=== PATIENT | female | born 1965 | race Caucasian/White ===

== ENCOUNTER → 2016-11-25 | Outpatient (CLI) | payer OTHER ==
--- NOTE | 2016-11-25 20:21 | PN ---
Amee is a 51-year-old female patient with known history of chronic hypersomnia and a component of insomnia. Further investigation showed the patient has a mild ARTURO and she was placed on an auto PAP treatment. Today the patient is coming in for a compliancy check. She is feeling great. Her sleep walking has improved significantly. Morning headache has resolved. Her weight is 202. Her compliancy data from APAP machine showed an average APAP use of 6.4 hours per night. AHI is down to one. Leak factor is 19 L a minute. P90 pressure is at 12. CPAP compliancy for the past 30 days is 27 out of 30. She is also using Ambien for sleep induction and maintenance. She has chronic back pain, gastroesophageal reflux, hypertension, hyperlipidemia, depression and irritable bowel disease. BP is 127/78, pulse 70, respirations 16, temperature is 97.9. Weight is 202, saturation 98% on room air. GENERAL APPEARANCE: Calm, comfortable. HEENT: No goiter, neck masses. LUNGS: Clear to auscultation. HEART: Sounds are regular rate and rhythm. Normal S1, S2. ABDOMEN: Soft, nontender. No organomegaly. EXTREMITIES: No edema. No cyanosis, or clubbing. IMPRESSIONS: 1. Obstructive sleep apnea mild apnea-hypopnea index 12.3. The patient is on good treatment with a APAP unit with excellent clinical response and compliance. 2. Chronic hypersomnia, improved. 3. Chronic insomnia on Ambien. 4. Fibromyalgia. 5. Chronic back pain. 6. Hyperlipidemia. 7. Hypertension. 8. Depression. 9. Irritable bowel syndrome. 10. Gastroesophageal reflux disease. PLAN: 1. Continue APAP treatment. 2. Weight loss. 3. Continue to Ambien 10 mg for sleep induction and maintenance. 4. Improve sleep hygiene measures. 5. ( ) fibromyalgia and the rest of the comorbidities. 6. See me back in a year's time in follow-up; earlier if needed.
== END | disposition home or self-care (01) ==
LOC: SLEEP 16:32
PROVIDERS: ATTEND Internal Medicine Critical Care Medicine
DX: G47.33 Obstructive sleep apnea (adult) (pediatric) (principal); G47.10 Hypersomnia, unspecified; G47.00 Insomnia, unspecified; M79.7 Fibromyalgia; G89.29 Other chronic pain; M54.9 Dorsalgia, unspecified; E78.5 Hyperlipidemia, unspecified; I10 Essential (primary) hypertension; F32.9 Major depressive disorder, single episode, unspecified; K58.9 Irritable bowel syndrome, unspecified; K21.9 Gastro-esophageal reflux disease without esophagitis

== ENCOUNTER → 2017-05-13 | Outpatient (CLI) | payer OTHER ==
--- NOTE | 2017-05-13 11:31 | XR ---
EXAMINATION TYPE: XR Hip Complete RT , 2 VIEWS DATE OF EXAM ORDERED: 05/13/2017 HISTORY: M25.551 pain in right hip. COMPARISON: None. FINDINGS: There is a calcified labral fragment lying adjacent to the superior acetabulum on the righ t. The joint is reasonably well-maintained. The femoral head is unremarkable. No acute osseous lesion is seen. IMPRESSION: 1. NO ACUTE OSSEOUS LESION. 2. MILD DEGENERATIVE CHANGE.
== END | disposition home or self-care (01) ==
LOC: RADXRMAIN 11:12
PROVIDERS: ATTEND Family Medicine
DX: M16.11 Unilateral primary osteoarthritis, right hip (principal)
CPT/HCPCS: 73502

== ENCOUNTER → 2017-05-25 | Outpatient (CLI) | payer OTHER ==
--- NOTE | 2017-05-26 16:05 | MR ---
MR right hip HISTORY: Right hip pain Correlation to plain films 05/13/2017 Multiplanar multisequence imaging obtained through the pelvis with small [id number] images through the right hip. Small ossific density seen on plain film the level of the acetabulum laterally in the right hip may r epresent an unfused apophysis or possibly a chronic labral tear. Articular cartilage signal is mainta ined. Bone marrow signal is normal. No sizable joint effusion. Fluid signal is present at the origin of the joint tendon of the hamstring musculature at the level o f the ischial tuberosity. There is some surrounding edema present. There may be a ganglion cyst forma tion. There is no adenopathy present. Small amount of fluid signal present at the insertion of the gluteal tendons right greater than left could represent trochanteric bursitis which is mild. IMPRESSION: Findings suggest tear at the origin of the hamstring musculature, findings may be chronic , correlate. Additional findings above.
== END | disposition home or self-care (01) ==
LOC: RADMRIMAIN 16:51
PROVIDERS: ATTEND Family Medicine
DX: M25.551 Pain in right hip (principal)

== ENCOUNTER → 2017-11-09 | Outpatient (CLI) | payer OTHER ==
--- NOTE | 2017-11-11 07:12 | MM ---
Reason for exam: screening (asymptomatic). Last mammogram was performed 1 year and 3 months ago. History: Family history of breast cancer in maternal aunt at age 60, breast cancer in maternal aunt at age 40, and breast cancer in maternal cousin at age 30. Benign US biopsy breast VAD RT of the right breast, August 13, 2015. Taking hormonal contraceptives for 10 years beginning at age 45. Taking other hormone. Physical Findings: A clinical breast exam by your physician is recommended on an annual basis and results should be correlated with mammographic findings. MG Screening Mammo w CAD Bilateral CC and MLO view(s) were taken. Prior study comparison: August 08, 2016, bilateral MG diagnostic mammo w CAD MICHELLE. August 08, 2016, right breast US breast RT. February 01, 2016, bilateral MG diagnostic mammo w CAD MICHELLE. The breast tissue is heterogeneously dense. This may lower the sensitivity of mammography. There are benign appearing oval, circumscribed, bilateral stable masses with biopsy marker in the right upper outer quadrant mass. No suspicious abnormality. No significant changes when compared with prior studies. ASSESSMENT: Benign, BI-RAD 2 RECOMMENDATION: Routine screening mammogram of both breasts in 1 year.
== END | disposition home or self-care (01) ==
LOC: RADMAMWWP 13:42
PROVIDERS: ATTEND Family Medicine
DX: Z12.31 Encounter for screening mammogram for malignant neoplasm of breast (principal)
CPT/HCPCS: 77067

== ENCOUNTER → 2017-12-01 | Outpatient (CLI) | payer OTHER ==
[2017-12-01 16:30] LABS: T4, Free (Free Thyroxine) 0.72 ng/dL (0.78-2.19)
== END | disposition home or self-care (01) ==
LOC: LABWHC1 15:23
PROVIDERS: ATTEND Psychiatry & Neurology Neurology
DX: R41.3 Other amnesia (principal)
CPT/HCPCS: 36415; 82607; 84439; 84443

== ENCOUNTER → 2017-12-11 | Outpatient (CLI) | payer OTHER | END | disposition home or self-care (01) | LOC: LABWHC1 10:23 | PROVIDERS: ATTEND Family Medicine | DX: R53.83 Other fatigue (principal) | CPT/HCPCS: 36415; 86340 ==

== ENCOUNTER → 2018-04-20 | Outpatient (CLI) | payer OTHER ==
--- NOTE | 2018-04-20 18:31 | XR ---
EXAMINATION TYPE: XR wrist limited RT DATE OF EXAM: 04/20/2018 COMPARISON: NONE HISTORY: Wrist pain TECHNIQUE: 2 views FINDINGS: There is a plate with screws fixing an old fracture of the distal radius. Radiocarpal joint is anatomic. I see no acute fracture nor dislocation. There is old ununited ulnar styloid process fr acture. IMPRESSION: No acute abnormality of the right wrist. 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
== END | disposition home or self-care (01) ==
LOC: RADXRMAIN 16:15
PROVIDERS: ATTEND Family Medicine
DX: M19.031 Primary osteoarthritis, right wrist (principal)

== ENCOUNTER 2018-05-16 12:07 | Emergency (ER) | payer OTHER ==
[2018-05-16] MEDS ORDERED: KETOROLAC 30 MG/ML 1 ML VIAL IM STA (12:37)
--- NOTE | 2018-05-16 12:40 | ED ---
Lower Extremity Injury HPI - General Chief Complaint: Extremity Injury, Lower Stated Complaint: rt hip pain Time Seen by Provider: 05/16/18 12:21 Source: patient Mode of arrival: ambulatory Limitations: no limitations - History of Present Illness Initial Comments: 53-year-old female patient presents to the emergency department today for evaluation of right hip pain. Patient states that around 3 or 4:00 in the morning she was rolling over in bed and got caught on her nightgown, states that she jerked her leg and it caused a popping in her right hip. Patient states that she has been having significant pain to the right lateral and anterior hip since. Patient states it is difficult to walk. Patient states it is difficult to lift the leg. She denies any radiation of the pain down the leg. Denies any numbness or tingling to the lower extremity. Denies any low back pain, loss of bowel or bladder control, or saddle anesthesia. Denies any previous injury to the hip. Patient denies any headache, neck pain, chest pain, shortness of breath, dizziness, weakness, abdominal pain, nausea, vomiting, or difficulties with bowel movements or urination. - Related Data Home Medications Medication Instructions Recorded Confirmed Dicyclomine [Bentyl] 20 mg PO QID PRN 02/14/15 12/23/16 FLUoxetine HCL [PROzac] 40 mg PO DAILY 02/14/15 12/23/16 Losartan [Cozaar] 50 mg PO DAILY 02/14/15 12/23/16 Medroxyprogesterone Acetate 150 mg IM Q90D 02/14/15 12/23/16 [Depo-Provera] Naproxen [Naprosyn] 500 mg PO Q12HR 02/14/15 12/23/16 Omeprazole [PriLOSEC] 20 mg PO AC-BID 02/14/15 12/23/16 Simvastatin [Zocor] 40 mg PO HS 02/14/15 12/23/16 metFORMIN HCL [Glucophage] 500 mg PO TID 02/14/15 12/23/16 Cyclobenzaprine [Flexeril] 10 mg PO TID PRN 10/04/16 12/23/16 Zolpidem Tartrate [Ambien] 10 mg PO HS PRN 10/04/16 12/23/16 Ferrous Sulfate [Iron (65 MG 325 mg PO DAILY 10/05/16 12/23/16 Elemental)] Previous Rx's Medication Instructions Recorded Aspirin EC [Ecotrin Low Dose] 81 mg PO DAILY #30 tablet. 10/06/16 Metoprolol Tartrate [Lopressor] 12.5 mg PO BID #60 tab 10/06/16 Allergies Allergy/AdvReac Type Severity Reaction Status Date / Time No Known Allergies Allergy Verified 05/16/18 12:13 Review of Systems ROS Statement: Those systems with pertinent positive or pertinent negative responses have been documented in the HPI. ROS Other: All systems not noted in ROS Statement are negative. Past Medical History Past Medical History: Asthma, Diabetes Mellitus, Fibromyalgia, GERD/Reflux, Hyperlipidemia, Hypertension, Osteoarthritis (OA), Sleep Apnea/CPAP/BIPAP Additional Past Medical History / Comment(s): IBS History of Any Multi-Drug Resistant Organisms: None Reported Past Surgical History: Section, Orthopedic Surgery Additional Past Surgical History / Comment(s): right wrist surg. x 4 Past Anesthesia/Blood Transfusion Reactions: No Reported Reaction Past Psychological History: Anxiety, Depression Smoking Status: Never smoker Past Alcohol Use History: None Reported Past Drug Use History: None Reported - Past Family History Mother Family Medical History: Cancer General Exam Limitations: no limitations General appearance: alert, in no apparent distress, other (Well-developed, well- nourished adult female patient in no acute distress. Vital signs upon presentation are temperature 98.3F, pulse 81, respirations 18, blood pressure 120/79, pulse ox 100% on room air.) Eye exam: Present: normal appearance, PERRL, EOMI. Absent: scleral icterus, conjunctival injection, periorbital swelling ENT exam: Present: normal exam, normal oropharynx, mucous membranes moist Respiratory exam: Present: normal lung sounds bilaterally. Absent: respiratory distress, wheezes, rales, rhonchi, stridor Cardiovascular Exam: Present: regular rate, normal rhythm, normal heart sounds. Absent: systolic murmur, diastolic murmur, rubs, gallop, clicks Extremities exam: Present: full ROM, tenderness (Right lateral hip tenderness), normal capillary refill, other (Patient has full range of motion to the right hip. Has no pain with internal or exteral rotation. No pain with flexion of the hip, but has increased pain with motion from flexion to extension. Skin to the right lower extremity is pink, warm, and dry. Cap refills less than 3 seconds. Pedal posttibial pulses are 2+ and equal bilaterally. No shortening or rotation noted. ). Absent: normal inspection, pedal edema, joint swelling, calf tenderness Back exam: Present: normal inspection. Absent: vertebral tenderness Neurological exam: Present: alert, oriented X3, CN II-XII intact Psychiatric exam: Present: normal affect, normal mood Skin exam: Present: warm, dry, intact, normal color. Absent: rash Course Vital Signs 05/16/18 05/16/18 12:13 13:45 Temperature 98.3 F 98 F Pulse Rate 81 77 Respiratory 18 16 Rate Blood Pressure 120/79 117/77 O2 Sat by Pulse 100 99 Oximetry Medical Decision Making - Medical Decision Making 53-year-old male patient presented to the emergency department today for evaluation of right hip pain after feeling a pop while rolling over in bed last night. Physical examination is unremarkable. She has full range of motion to the right hip. Neurovascular status is intact. X-ray of the hip and pelvis was obtained and showed no acute fractures or dislocations. Did discuss findings and results with the patient. We did discuss that her injury is most likely muscular or tendinous in origin. She is instructed take anti- inflammatory pain medications as directed. She is instructed to apply ice and then start to apply heat tomorrow. She is instructed to follow-up outpatient in 1-2 days if her symptoms are not improved. Return parameters discussed in detail. She verbalizes understanding and agrees with this plan. - Radiology Data Radiology results: report reviewed, image reviewed 3 views of the right hip and went to of the pelvis is obtained. There are mild degenerative changes in both hips. There is a calcified able fragment on the right. No fracture or dislocation is seen. There is mild and diffuse opacity seen arising from the anterior pubic ramus on the right. Impression by Dr. Lay shows no acute osseous lesion. Mild degenerative change. Disposition Clinical Impression: Strain of right hip Disposition: HOME SELF-CARE Condition: Good Instructions: Hip Pain (ED) Additional Instructions: Apply ice for the first 24 hours and then switch to warm moist heat. Continue taking home anti-inflammatory medications as needed. Follow-up with orthopedics if her symptoms do not improve over the next 1-2 days. Return here immediately for any new, worsening, or concerning symptoms. Is patient prescribed a controlled substance at d/c from ED?: No Referrals: Heather Velez MD [Primary Care Provider] - 1-2 days Orlin Parekh MD [Medical Doctor] - 1-2 days Time of Disposition: 13:41
--- NOTE | 2018-05-16 13:12 | XR ---
EXAMINATION TYPE: XR Hip RT and AP Pelvis , 3 VIEWS DATE OF EXAM ORDERED: 05/16/2018 HISTORY: Pain. COMPARISON: None. FINDINGS: There are mild degenerative changes in both hips. There is a calcified labral fragment on the right. No fracture or dislocation is seen. There is a mild enthesopathy seen arising from the inf erior pubic ramus on the right. IMPRESSION: 1. NO ACUTE OSSEOUS LESION. 2. MILD DEGENERATIVE CHANGE.
[2018-05-16] MEDS ORDERED: ACET/COD 300 MG/30 MG STARTER PACK 6 TAB BTL PO STA (13:41)
[2018-05-16 13:46] VITALS: BP 117/77; PULSE 77; RESP 16; TEMP 98
== END 2018-05-16 13:49 | disposition home or self-care (01) ==
LOC: EC 12:07
DX: E11.9 Type 2 diabetes mellitus without complications (principal); M79.7 Fibromyalgia; K21.9 Gastro-esophageal reflux disease without esophagitis; E78.5 Hyperlipidemia, unspecified; I10 Essential (primary) hypertension; M19.90 Unspecified osteoarthritis, unspecified site; F41.9 Anxiety disorder, unspecified; F32.9 Major depressive disorder, single episode, unspecified; G47.30 Sleep apnea, unspecified; Z99.89 Dependence on other enabling machines and devices; Z79.3 Long term (current) use of hormonal contraceptives; Z79.1 Long term (current) use of non-steroidal anti-inflammatories (NSAID); Z79.84 Long term (current) use of oral hypoglycemic drugs; Z79.899 Other long term (current) drug therapy; S76.011A Strain of muscle, fascia and tendon of right hip, initial encounter; X50.1XXA Overexertion from prolonged static or awkward postures, initial encounter
CPT/HCPCS: 73502; 99283; 96372; J1885

== ENCOUNTER 2018-05-23 09:58 | Emergency (ER) | payer OTHER ==
[2018-05-23 10:08] VITALS: RESP 18
--- NOTE | 2018-05-23 11:02 | XR ---
EXAMINATION TYPE: XR foot complete RT , 3 VIEWS DATE OF EXAM ORDERED: 05/23/2018 HISTORY: Pain. COMPARISON: None. FINDINGS: There are mild degenerative changes in the first MTP joint. No fracture or dislocation is seen. There is a plantar calcaneal spur. IMPRESSION: 1. NO ACUTE OSSEOUS LESION. 2. DEGENERATIVE CHANGE, RIGHT FIRST MTP JOINT. 3. PLANTAR CALCANEAL SPUR.
--- NOTE | 2018-05-23 11:03 | XR ---
EXAMINATION TYPE: XR ankle complete RT , 3 VIEWS DATE OF EXAM ORDERED: 05/23/2018 HISTORY: Pain. COMPARISON: None. FINDINGS: No fracture, dislocation or ankle joint effusion is seen. Note is made of a tiny plantar calcaneal spur. IMPRESSION: NO ACUTE OSSEOUS LESION.
--- NOTE | 2018-05-23 11:03 | ED ---
General Adult HPI - General Chief complaint: Extremity Injury, Lower Stated complaint: rt foot injury Time Seen by Provider: 05/23/18 10:30 Source: patient, RN notes reviewed Mode of arrival: ambulatory Limitations: no limitations - History of Present Illness Initial comments: Patient is a 53-year-old female presenting to the emergency room today with a chief complaint of injury to the right foot and ankle area that occurred 4 days ago. Patient does admit that she twisted it when she was walking. Patient does admit that she has pain with ambulation. Patient denies any other injury or complaint. Patient denies any recent fever, chills, shortness of breath, chest pain, back pain, abdominal pain, nausea or vomiting, headaches or visual changes, or any other complaints. - Related Data Home Medications Medication Instructions Recorded Confirmed Dicyclomine [Bentyl] 20 mg PO QID PRN 02/14/15 12/23/16 FLUoxetine HCL [PROzac] 40 mg PO DAILY 02/14/15 12/23/16 Losartan [Cozaar] 50 mg PO DAILY 02/14/15 12/23/16 Medroxyprogesterone Acetate 150 mg IM Q90D 02/14/15 12/23/16 [Depo-Provera] Naproxen [Naprosyn] 500 mg PO Q12HR 02/14/15 12/23/16 Omeprazole [PriLOSEC] 20 mg PO AC-BID 02/14/15 12/23/16 Simvastatin [Zocor] 40 mg PO HS 02/14/15 12/23/16 metFORMIN HCL [Glucophage] 500 mg PO TID 02/14/15 12/23/16 Cyclobenzaprine [Flexeril] 10 mg PO TID PRN 10/04/16 12/23/16 Zolpidem Tartrate [Ambien] 10 mg PO HS PRN 10/04/16 12/23/16 Ferrous Sulfate [Iron (65 MG 325 mg PO DAILY 10/05/16 12/23/16 Elemental)] Previous Rx's Medication Instructions Recorded Aspirin EC [Ecotrin Low Dose] 81 mg PO DAILY #30 tablet. 10/06/16 Metoprolol Tartrate [Lopressor] 12.5 mg PO BID #60 tab 10/06/16 Allergies Allergy/AdvReac Type Severity Reaction Status Date / Time No Known Allergies Allergy Verified 05/23/18 10:08 Review of Systems ROS Statement: Those systems with pertinent positive or pertinent negative responses have been documented in the HPI. ROS Other: All systems not noted in ROS Statement are negative. Past Medical History Past Medical History: Asthma, Diabetes Mellitus, Fibromyalgia, GERD/Reflux, Hyperlipidemia, Hypertension, Osteoarthritis (OA), Sleep Apnea/CPAP/BIPAP Additional Past Medical History / Comment(s): IBS History of Any Multi-Drug Resistant Organisms: None Reported Past Surgical History: Section, Orthopedic Surgery Additional Past Surgical History / Comment(s): right wrist surg. x 4 Past Anesthesia/Blood Transfusion Reactions: No Reported Reaction Past Psychological History: Anxiety, Depression Smoking Status: Never smoker Past Alcohol Use History: None Reported Past Drug Use History: None Reported - Past Family History Mother Family Medical History: Cancer General Exam - General Exam Comments Initial Comments: General: The patient is awake and alert, in no distress, and does not appear acutely ill. Neck: The neck is supple, there is no tenderness or JVD. Musculoskeletal: Normal appearance of her foot no obvious deformity. No tenderness on palpation to the right foot, ankle, knee. Sensations are intact. Pulses 2+. Neurological: A&O x 3. CN II-XII intact, There are no obvious motor or sensory deficits. Coordination appears grossly intact. Speech is normal. Skin: Skin is warm and dry and no rashes or lesions are noted. Psychiatric: Normal mood and affect. Limitations: no limitations Course Vital Signs 05/23/18 10:05 Temperature 98.2 F Pulse Rate 67 Respiratory 18 Rate Blood Pressure 133/87 O2 Sat by Pulse 98 Oximetry Medical Decision Making - Medical Decision Making Patient's x-rays negative for any acute abnormality. Results were discussed with patient. Patient will be discharged home advised follow-up in 7-10 days if symptoms persist for repeat x-rays. Disposition Clinical Impression: Foot sprain Disposition: HOME SELF-CARE Condition: Good Instructions: Foot Sprain (ED) Additional Instructions: Please follow-up in 7-10 days for repeat x-rays if symptoms persist as discussed. Please return to emergency room if the symptoms increase or worsen or for any other concerns. Is patient prescribed a controlled substance at d/c from ED?: No Referrals: Heather Velez MD [Primary Care Provider] - 1-2 days Time of Disposition: 11:31
[2018-05-23 12:02] VITALS: BP 137/79; PULSE 68; TEMP 98.7
== END 2018-05-23 11:56 | disposition home or self-care (01) ==
LOC: EC 09:58
DX: S93.601A Unspecified sprain of right foot, initial encounter (principal); E11.9 Type 2 diabetes mellitus without complications; K21.9 Gastro-esophageal reflux disease without esophagitis; E78.5 Hyperlipidemia, unspecified; I10 Essential (primary) hypertension; M19.90 Unspecified osteoarthritis, unspecified site; F32.9 Major depressive disorder, single episode, unspecified; G47.30 Sleep apnea, unspecified; Z99.89 Dependence on other enabling machines and devices; Z98.890 Other specified postprocedural states; Z79.1 Long term (current) use of non-steroidal anti-inflammatories (NSAID); Z79.84 Long term (current) use of oral hypoglycemic drugs; Z79.52 Long term (current) use of systemic steroids; Z79.899 Other long term (current) drug therapy; X50.1XXA Overexertion from prolonged static or awkward postures, initial encounter; Y93.01 Activity, walking, marching and hiking
CPT/HCPCS: 99283

== ENCOUNTER → 2018-11-25 | Outpatient (CLI) | payer OTHER ==
--- NOTE | 2018-11-29 08:37 | MM ---
Reason for exam: screening (asymptomatic). Last mammogram was performed 1 year and 1 month ago. History: Family history of breast cancer in maternal aunt at age 60, breast cancer in maternal aunt at age 40, and breast cancer in maternal cousin at age 30. Benign US biopsy breast VAD RT of the right breast, August 13, 2015. Taking hormonal contraceptives for 10 years beginning at age 45. Taking other hormone. Physical Findings: A clinical breast exam by your physician is recommended on an annual basis and results should be correlated with mammographic findings. MG Screening Mammo w CAD Bilateral CC and MLO view(s) were taken. Prior study comparison: November 09, 2017, bilateral MG screening mammo w CAD. August 08, 2016, bilateral MG diagnostic mammo w CAD MICHELLE. The breast tissue is heterogeneously dense. This may lower the sensitivity of mammography. Previous mammotome biopsy in the right breast. There is chronic nodularity bilaterally. There is no discrete abnormality. ASSESSMENT: Benign, BI-RAD 2 RECOMMENDATION: Routine screening mammogram of both breasts in 1 year.
== END | disposition home or self-care (01) ==
LOC: RADMAMWWP 07:39
PROVIDERS: ATTEND Family Medicine
DX: Z12.31 Encounter for screening mammogram for malignant neoplasm of breast (principal)
CPT/HCPCS: 77067

== ENCOUNTER → 2019-01-21 | Outpatient (CLI) | payer OTHER ==
[2019-01-21 08:35] LABS: Basophils # (A) 0.1 k/uL (0-0.2); Basophils % (A) 1 %; Eosinophils # (A) 0.2 k/uL (0-0.7); Eosinophils % (A) 4 %; HCT 41.6 % (34.0-46.0); HGB 14.4 gm/dL (11.4-16.0); Lymphocytes # (A) 1.9 k/uL (1.0-4.8); Lymphocytes % (A) 30 %; MCH 31.8 pg (25.0-35.0); MCHC 34.6 g/dL (31.0-37.0); MCV 91.8 fL (80.0-100.0); Mean Platelet Volume 8.8; Monocytes # (A) 0.4 k/uL (0-1.0); Monocytes % (A) 6 %; Neutrophils # (A) 3.7 k/uL (1.3-7.7); Neutrophils % (A) 58 %; Platelet Count 304 k/uL (150-450); RBC 4.53 m/uL (3.80-5.40); WBC 6.3 k/uL (3.8-10.6)
[2019-01-21 16:01] LABS: Albumin 4.1 g/dL (3.80-4.90); Albumin/Globulin Ratio 2.93 (1.60-3.17); Anion Gap 11.6 mmol/L (4.00-12.00); Calcium 9.2 mg/dL (8.7-10.3); Carbon Dioxide 24.4 mmol/L (21.6-31.8); Globulin 1.4 g/dL (1.6-3.3); LDL Cholesterol,Calculated 85.8 mg/dL (0.0-131.0); Potassium 4.1 mmol/L (3.5-5.5); Total Bilirubin 0.5 mg/dL (0.2-1.2); Total Protein 5.5 g/dL (6.2-8.2); VLDL Calculation 34.2 mg/dL (5.00-40.00)
[2019-01-21 18:19] LABS: Hemoglobin A1C 9.1 % (4.0-6.0)
== END ==
LOC: LABWHC1 07:55
PROVIDERS: ATTEND Family Medicine
DX: D64.9 Anemia, unspecified (principal); E11.9 Type 2 diabetes mellitus without complications; E78.5 Hyperlipidemia, unspecified; I10 Essential (primary) hypertension
CPT/HCPCS: 36415; 80053; 80061; 83036; 84443; 85025

== ENCOUNTER → 2019-11-28 | Outpatient (CLI) | payer OTHER ==
--- NOTE | 2019-11-28 10:50 | MM ---
Reason for exam: screening (asymptomatic). Last mammogram was performed 1 year ago. History: Family history of breast cancer in maternal aunt at age 60, breast cancer in maternal aunt at age 40, and breast cancer in maternal cousin at age 30. Benign US biopsy breast VAD RT of the right breast, August 13, 2015. Taking hormonal contraceptives for 10 years beginning at age 45. Taking other hormone. Physical Findings: A clinical breast exam by your physician is recommended on an annual basis and results should be correlated with mammographic findings. MG Screening Mammo w CAD Bilateral CC, MLO, and XCCL view(s) were taken. Prior study comparison: November 25, 2018, bilateral MG screening mammo w CAD. November 09, 2017, bilateral MG screening mammo w CAD. The breast tissue is heterogeneously dense. This may lower the sensitivity of mammography. Benign appearing calcifications in the right breast. Stable bilateral upper outer quadrant focal asymmetries No suspicious abnormality. Right biopsy marker noted. ASSESSMENT: Benign, BI-RAD 2 RECOMMENDATION: Routine screening mammogram of both breasts in 1 year.
== END | disposition home or self-care (01) ==
LOC: RADMAMWWP 07:43
PROVIDERS: ATTEND Family Medicine
DX: Z12.31 Encounter for screening mammogram for malignant neoplasm of breast (principal)
CPT/HCPCS: 77067

== ENCOUNTER → 2020-08-01 | Outpatient (CLI) | payer BC ==
--- NOTE | 2020-08-01 15:25 | XR ---
EXAMINATION TYPE: XR wrist complete RT DATE OF EXAM: 08/01/2020 CLINICAL HISTORY: pain TECHNIQUE: Frontal, lateral and oblique images of the right wrist are obtained. COMPARISON: 04/20/2018 FINDINGS: Fixation plate and screws are noted to traverse the distal radius as was seen previously. Fixation pl ate however demonstrates a lucency at its lateral component and this may reflect plate fracture. Ther e is also greater angulation dorsally relative to the prior study. There is deformity about the wrist . No acute fracture identified with certainty at this time. IMPRESSION: Plate fixation distal radius with plate fracture suggested and increased right angulation. ICD 10 NO FRACTURE, INITIAL EVALUATION
== END | disposition home or self-care (01) ==
LOC: RADXRMAIN 15:03
PROVIDERS: ATTEND Family Medicine
DX: S52.591A Other fractures of lower end of right radius, initial encounter for closed fracture (principal); Z96.7 Presence of other bone and tendon implants

== ENCOUNTER → 2020-12-27 | Outpatient (CLI) | payer BC ==
--- NOTE | 2020-12-28 14:48 | MM ---
Reason for exam: screening (asymptomatic). Last mammogram was performed 1 year and 1 month ago. History: Family history of breast cancer in maternal aunt at age 60, breast cancer in maternal aunt at age 40, and breast cancer in maternal cousin at age 30. Benign US biopsy breast VAD RT of the right breast, August 13, 2015. Taking hormonal contraceptives for 10 years beginning at age 45. Taking other hormone. Physical Findings: A clinical breast exam by your physician is recommended on an annual basis and results should be correlated with mammographic findings. MG Screening Mammo w CAD Bilateral CC and MLO view(s) were taken. Prior study comparison: November 28, 2019, bilateral MG screening mammo w CAD. November 25, 2018, bilateral MG screening mammo w CAD. There are scattered fibroglandular densities. There are benign appearing round calcifications bilaterally. Previous mammotome biopsy in the right breast. There is chronic nodularity bilaterally. There is no discrete abnormality. ASSESSMENT: Benign, BI-RAD 2 RECOMMENDATION: Routine screening mammogram of both breasts in 1 year.
== END | disposition home or self-care (01) ==
LOC: RADMAMWWP 13:42
PROVIDERS: ATTEND Family Medicine
DX: Z12.31 Encounter for screening mammogram for malignant neoplasm of breast (principal)
CPT/HCPCS: 77067

== ENCOUNTER → 2021-08-13 | Outpatient (CLI) | payer BC ==
--- NOTE | 2021-08-14 07:55 | CT ---
EXAMINATION TYPE: CT sinus wo con DATE OF EXAM: 08/13/2021 COMPARISON: None HISTORY: memory loss, visual changes, ringing in ears CT DLP: 385.[address] of the paranasal sinuses was performed in the axial and coronal planes. Bone and soft tissue settings are submitted. The paranasal sinuses demonstrate normal aeration and development. The paranasal sinuses are free of mucosal thickening or air fluid level. The osteal meatal units are patent bilaterally. The nasal septum is midline. No bony destructive changes are seen within the field of view. IMPRESSION: Normal unenhanced CT of the paranasal sinuses.
== END | disposition home or self-care (01) ==
LOC: RADCTMAIN 16:32
PROVIDERS: ATTEND Otolaryngology
DX: R41.3 Other amnesia (principal); H53.8 Other visual disturbances; H93.13 Tinnitus, bilateral
CPT/HCPCS: 70486

== ENCOUNTER → 2022-01-27 | Outpatient (CLI) | payer BC ==
--- NOTE | 2022-01-28 02:04 | MR ---
EXAMINATION TYPE: MR lumbar spine wo con DATE OF EXAM: 01/27/2022 COMPARISON: None HISTORY: Chronic LBP, BLE radiculopathy. Multiplanar multiecho imaging of the lumbar spine without contrast. The vertebrae have fairly normal alignment. There is a minimal anterior subluxation of L4 in relation L5. This spaces are well maintained. No compression fracture. The neural foramina are fairly well ma intained. Facet joints are intact. There is some minimal lateral recess stenosis at L4-5 due to facet arthropathy. No compression fracture. I see no bony destructive process. There is no lumbar paraspinal mass. The sacroiliac joints appear intact. IMPRESSION: There is a mild degenerative first-degree L4-5 spondylolisthesis. Minimal L4-5 lateral recess stenosi s. No fracture.
== END | disposition home or self-care (01) ==
LOC: RADMRIMAIN 18:33
PROVIDERS: ATTEND Orthopaedic Surgery
DX: M43.16 Spondylolisthesis, lumbar region (principal)
CPT/HCPCS: 72148

== ENCOUNTER → 2022-03-04 | Outpatient (CLI) | payer BC ==
--- NOTE | 2022-03-04 19:00 | US ---
EXAMINATION TYPE: US kidneys/renal and bladder DATE OF EXAM: 03/04/2022 COMPARISON: NONE CLINICAL HISTORY: 56-year-old female R10.9 Abdominal pain. TECHNIQUE: Multiple sonographic images of the kidneys and bladder are obtained. FINDINGS: EXAM MEASUREMENTS: Right Kidney: 10.7 x 4.6 x 5.3 cm Left Kidney: 11.1 x 4.3 x 4.6 cm Right Kidney: No hydronephrosis or masses seen Left Kidney: No hydronephrosis or masses seen Bladder: Limited, under distended. Bilateral Jets seen: No IMPRESSION: 1. No hydronephrosis. 2. Underdistention of the bladder limits its evaluation.
== END | disposition home or self-care (01) ==
LOC: RADUSWWP 11:22
PROVIDERS: ATTEND Family Medicine
DX: N32.89 Other specified disorders of bladder (principal)
CPT/HCPCS: 76770

== ENCOUNTER → 2022-03-20 | Outpatient (CLI) | payer BC ==
[2022-03-20 12:59] LABS: African American GFR (CKD) 69 (>60 ml/min/1.73 sqM); Anion Gap 9 mmol/L; Blood Urea Nitrogen 9 mg/dL (7-17); Calcium 9.4 mg/dL (8.4-10.2); Carbon Dioxide 28 mmol/L (22-30); Chloride 102 mmol/L (98-107); Glucose 96 mg/dL (74-99); Non-African American GFR(CKD) 59 (>60 ml/min/1.73 sqM); Sodium 139 mmol/L (137-145)
[2022-03-20 13:58] LABS: Basophils # (A) 0.1 k/uL (0-0.2); Basophils % (A) 1 %; Eosinophils # (A) 0.1 k/uL (0-0.7); Eosinophils % (A) 2 %; HCT 43.7 % (34.0-46.0); HGB 13.9 gm/dL (11.4-16.0); Lymphocytes # (A) 2.1 k/uL (1.0-4.8); Lymphocytes % (A) 29 %; MCHC 31.9 g/dL (31.0-37.0); MCV 97.2 fL (80.0-100.0); Mean Platelet Volume 9.9; Monocytes # (A) 0.5 k/uL (0-1.0); Monocytes % (A) 7 %; Neutrophils # (A) 4.3 k/uL (1.3-7.7); Neutrophils % (A) 59 %; Platelet Count 224 k/uL (150-450); RDW 13.6 % (11.5-15.5); WBC 7.2 k/uL (3.8-10.6)
== END | disposition home or self-care (01) ==
LOC: LABWHC1 11:51
PROVIDERS: ATTEND Family Medicine
DX: N28.9 Disorder of kidney and ureter, unspecified (principal)
CPT/HCPCS: 36415; 80048; 85025

== ENCOUNTER → 2022-04-24 | Outpatient (CLI) | payer BC ==
--- NOTE | 2022-04-24 15:23 | MR ---
EXAMINATION TYPE: MR brain and iac wo/w con DATE OF EXAM: 04/24/2022 COMPARISON: None HISTORY: Left side hearing loss and ringing TECHNIQUE: Multiplanar, multisequence images of the brain and brainstem is performed without and with IV contras t, utilizing 8 mL intravenous Gadavist . Small [id number] and high resolution images obtained thro [facility] the internal auditory canals FINDINGS: Diffusion weighted images demonstrate no evidence of a recent infarct or other diffusion ab normality. There is no extra-axial fluid collection or significant white matter signal abnormality, couple of small white matter right frontal hyperintensities on inversion recovery T2-weighted sequenc es are questioned clinical significance. The ventricular system and cisternal spaces are normal in s ize and appearance. The brain volume is age appropriate. Internal auditory canal show no abnormal soft tissue, there is no abnormal enhancement or cerebellopo ntine angle mass Midline structures demonstrate normal morphology. The craniocervical junction appears within normal limits. Post contrast images demonstrate no abnormal enhancement. The dural venous sinuses appear pa tent. The visualized sinuses are remarkable for inflammatory change in ethmoid air cells and the glob es are intact. IMPRESSION: Mild sinus disease. No evident acoustic neuroma.
== END | disposition home or self-care (01) ==
LOC: RADMRIMAIN 08:02
PROVIDERS: ATTEND Otolaryngology
DX: H93.12 Tinnitus, left ear (principal)
CPT/HCPCS: 70553; A9585

== ENCOUNTER → 2022-04-24 | Outpatient (CLI) | payer BC ==
--- NOTE | 2022-04-25 18:26 | MM ---
Reason for Exam: Screening (asymptomatic). Last mammogram was performed 1 year(s) and 4 month(s) ago. Patient History: Menarche at age 13. First Full-Term at age 26. Currently using Hormonal Contraceptives, beginning at age 45 for 10 years. 08/13/2015, Benign Core Biopsy on the right side. Maternal cousin had breast cancer, age 30. Maternal aunt had breast cancer, age 60. Maternal aunt had breast cancer, age 40. Risk Values: Leonarda 5 year model risk: 1.4%. NCI Lifetime model risk: 9.5%. Prior Study Comparison: 11/25/2018 Bilateral Screening Mammogram, [facility]. 11/28/2019 Bilateral Screening Mammogram, [facility]. 12/27/2020 Bilateral Screening Mammogram, [facility]. Tissue Density: There are scattered fibroglandular densities. Findings: Analyzed By CAD. Chronic nodularity on both sides. On the right, containing a microclip from prior biopsy. No significant change from prior exams. Overall Assessment: Benign, BI-RAD 2 Management: Screening Mammogram of both breasts in 1 year. 1. Patient should continue monthly self breast exams. 2. A clinical breast exam by your physician is recommended on an annual basis. 3. This exam should not preclude additional follow-up of suspicious palpable abnormalities. Electronically signed and approved by: Terrance Do M.D. Radiologist
== END | disposition home or self-care (01) ==
LOC: RADMAMWWP 16:05
PROVIDERS: ATTEND Family Medicine
DX: Z12.31 Encounter for screening mammogram for malignant neoplasm of breast (principal); Z80.3 Family history of malignant neoplasm of breast
CPT/HCPCS: 77067

== ENCOUNTER 2022-05-27 08:52 | Inpatient (IN) | payer BC ==
[2022-05-27 09:37] LABS: Basophils # (A) 0.1 k/uL (0-0.2); Basophils % (A) 1 %; Eosinophils # (A) 0.2 k/uL (0-0.7); Eosinophils % (A) 1 %; HCT 43.6 % (34.0-46.0); HGB 13.5 gm/dL (11.4-16.0); Hypochromasia Slight; Lymphocytes # (A) 2.8 k/uL (1.0-4.8); Lymphocytes % (A) 20 %; MCHC 31.1 g/dL (31.0-37.0); MCV 99.9 fL (80.0-100.0); Monocytes # (A) 0.8 k/uL (0-1.0); Monocytes % (A) 6 %; Neutrophils # (A) 9.7 k/uL (1.3-7.7); Neutrophils % (A) 71 %; Platelet Count 342 k/uL (150-450); RBC 4.36 m/uL (3.80-5.40); WBC 13.6 k/uL (3.8-10.6)
[2022-05-27] MEDS ORDERED: SODIUM CHLORIDE 0.9% 2,000 ML IV ONE (09:39)
[2022-05-27] MEDS ORDERED: ONDANSETRON 4 MG/2 ML VIAL IVP STA (09:40)
[2022-05-27 09:50] LABS: Albumin 4.2 g/dL (3.5-5.0); Calcium 9.5 mg/dL (8.4-10.2); Potassium 5.1 mmol/L (3.5-5.1); Total Bilirubin 0.6 mg/dL (0.2-1.3); Total Protein 6.8 g/dL (6.3-8.2)
--- NOTE | 2022-05-27 10:15 | XR ---
EXAMINATION TYPE: XR KUB DATE OF EXAM: 05/27/2022 Comparison: None Clinical History: 57 year-old female abdominal pain Findings: Lung bases are clear. No evidence for free intraperitoneal air. No dilated small bowel or differential air-fluid levels. Th ere is mild to moderate stool burden. Pelvic phlebolith are noted. No definite suspicious calcificati on otherwise seen. Impression: No evidence for free air or bowel obstruction. Mild to moderate stool burden.
[2022-05-27] MEDS ORDERED: DEXTROSE 50% SYRINGE 50 ML IVP STA (10:22)
[2022-05-27] MEDS ORDERED: NALOXONE 0.4 MG/ML 1 ML VIAL IV PRN (11:19)
--- NOTE | 2022-05-27 11:19 | ED ---
General Adult HPI - General Chief complaint: Nausea/Vomiting/Diarrhea Stated complaint: vomiting, not able to urinate, no bowel movement Time Seen by Provider: 05/27/22 09:25 Source: patient Mode of arrival: ambulatory Limitations: no limitations - History of Present Illness Initial comments: 57-year-old female presents the emergency department with nausea, vomiting and inability to urinate. States that she hasn't been able to eat or drink anything in a couple of days. She has terrible nausea to where she can't even hold down water. She denies any abdominal pain. No sick contacts with similar symptoms. No fevers. Denies chest pain or shortness of breath. She reports that she has not urinated in 24 hours. Daughter got wind of her symptoms immediately or come into the emergency department. Denies history of any kidney issues. No back or flank pain. No issues with her bowel movements. Denies diarrhea. She did have a urinary tract infection 1 month ago however not on any antibiotics. No other alleviating, precipitating or modifying factors - Related Data Home Medications Medication Instructions Recorded Confirmed Dicyclomine [Bentyl] 20 mg PO TID 02/14/15 05/27/22 Simvastatin [Zocor] 40 mg PO HS 02/14/15 05/27/22 metFORMIN HCL [Glucophage] 1,000 mg PO BID 02/14/15 05/27/22 Linagliptin [Tradjenta] 5 mg PO HS 05/30/20 05/27/22 Telmisartan [Micardis] 40 mg PO DAILY 05/30/20 05/27/22 ARIPiprazole [Abilify] 4 mg PO DAILY 05/27/22 05/27/22 Azelastine HCl [Astepro] 1 spray NASAL BID 05/27/22 05/27/22 Cyclobenzaprine [Flexeril] 5 mg PO TID 05/27/22 05/27/22 DULoxetine HCL [Cymbalta] 60 mg PO DAILY 05/27/22 05/27/22 Ergocalciferol [Vitamin D2 (1250 1,250 mcg PO Q14D 05/27/22 05/27/22 Mcg = 48741 Iu)] Ferrous Sulfate [Feosol] 325 mg PO DAILY 05/27/22 05/27/22 Fexofenadine HCl 180 mg PO HS 05/27/22 05/27/22 Fluticasone Nasal [place] [Flonase 2 spray EA NOSTRIL BID 05/27/22 05/27/22 Nasal [place]ize] Folic Acid 0.8 mg PO BID 05/27/22 05/27/22 Meloxicam [Mobic] 15 mg PO DAILY 05/27/22 05/27/22 Metoprolol Tartrate [Lopressor] 25 mg PO DAILY 05/27/22 05/27/22 Montelukast [Singulair] 10 mg PO HS 05/27/22 05/27/22 Naltrexone 3mg 3 mg PO HS 05/27/22 05/27/22 Omeprazole 40 mg PO BID 05/27/22 05/27/22 Pioglitazone [Actos] 30 mg PO DAILY 05/27/22 05/27/22 Propylene Glycol [Systane Complete] 1 drop BOTH EYES DAILY 05/27/22 05/27/22 Refresh Optical Gel 1 applic OPHTHALMIC HS 05/27/22 05/27/22 Thiamine [Vitamin B-1] 100 mg PO HS 05/27/22 05/27/22 Zolpidem [Ambien] 10 mg PO HS 05/27/22 05/27/22 Previous Rx's Medication Instructions Recorded Aspirin EC [Ecotrin Low Dose] 81 mg PO DAILY #30 tablet. 10/06/16 Allergies Allergy/AdvReac Type Severity Reaction Status Date / Time wheat Allergy Unknown Verified 05/27/22 11:46 Review of Systems ROS Statement: Those systems with pertinent positive or pertinent negative responses have been documented in the HPI. ROS Other: All systems not noted in ROS Statement are negative. Past Medical History Past Medical History: Asthma, Diabetes Mellitus, Fibromyalgia, GERD/Reflux, Hyperlipidemia, Hypertension, Osteoarthritis (OA), Sleep Apnea/CPAP/BIPAP Additional Past Medical History / Comment(s): IBS History of Any Multi-Drug Resistant Organisms: None Reported Past Surgical History: Section, Orthopedic Surgery Additional Past Surgical History / Comment(s): right wrist surg. x 4, eye surgery Past Anesthesia/Blood Transfusion Reactions: No Reported Reaction Past Psychological History: Anxiety, Depression Smoking Status: Never smoker Past Alcohol Use History: None Reported Past Drug Use History: None Reported - Past Family History Mother Family Medical History: Cancer Brother(s) Family Medical History: Myocardial Infarction (CO) Additional Family Medical History / Comment(s): three brothers had CO, CABG General Exam Limitations: no limitations General appearance: alert, in no apparent distress Head exam: Present: atraumatic, normocephalic, normal inspection Eye exam: Present: normal appearance, PERRL, EOMI. Absent: scleral icterus, conjunctival injection, periorbital swelling ENT exam: Present: normal exam, mucous membranes moist Neck exam: Present: normal inspection. Absent: tenderness, meningismus, lymphadenopathy Respiratory exam: Present: normal lung sounds bilaterally. Absent: respiratory distress, wheezes, rales, rhonchi, stridor Cardiovascular Exam: Present: normal rhythm, tachycardia, normal heart sounds. Absent: systolic murmur, diastolic murmur, rubs, gallop, clicks GI/Abdominal exam: Present: soft, normal bowel sounds. Absent: distended, tenderness, guarding, rebound, rigid Extremities exam: Present: normal inspection, full ROM, normal capillary refill. Absent: tenderness, pedal edema, joint swelling, calf tenderness Back exam: Present: normal inspection Neurological exam: Present: alert, oriented X3, CN II-XII intact Psychiatric exam: Present: normal affect, normal mood Skin exam: Present: warm, dry, intact, normal color. Absent: rash Course Vital Signs 05/27/22 05/27/22 05/27/22 09:11 10:44 13:46 Temperature 97.9 F 97 F L Pulse Rate 101 H 99 71 Respiratory 18 16 18 Rate Blood Pressure 135/82 161/94 139/81 O2 Sat by Pulse 100 100 100 Oximetry 05/27/22 18:36 Temperature Pulse Rate 85 Respiratory 16 Rate Blood Pressure 139/81 O2 Sat by Pulse 100 Oximetry Procedures - Sepsis Sepsis Focused Exam #1 Time Sepsis Criteria Met: 10:40 Sepsis Focused Exam Date: 05/27/22 Sepsis Focused Exam Time: 15:00 Sepsis Focused Exam Complete: Yes Vital Signs & RN Notes Reviewed: Yes Capillary Refill: < 2 Seconds: Fingers, Toes Peripheral Pulses: Normal: Radial (R), Radial (L), Posterior Tibialis (R), Posterior Tibialis (L) Skin Color: Normal for Patient Respiratory Exam: normal lung sounds Cardiovascular Exam: regular rate Medical Decision Making - Medical Decision Making Upon arrival the patient was placed into room 33. A thorough history of physical exam was performed. IV access is established and the patient was given a 2 L bolus of normal saline. She is also given 4 mg of Zofran. Laboratory studies are conducted reviewed. White blood count 13.6. Creatinine 6. Glucose 70. Influenza-negative. Lactic acid 9.1. Villavicencio catheter is placed due to the patient's profound kidney failure. X-ray demonstrates no evidence of free air. Renal ultrasound demonstrates no hydronephrosis. Discussed the results with the patient. Did recommend admission for her renal failure for which she did agree to. Spoke with Dr. Mishra who agreed to admit the patient - Lab Data Result diagrams: 05/30/22 07:48 05/30/22 07:48 Lab Results 05/27/22 05/27/22 05/27/22 Range/Units 09:31 09:31 10:08 WBC 13.6 H (3.8-10.6) k/uL RBC 4.36 (3.80-5.40) m/uL Hgb 13.5 (11.4-16.0) gm/dL Hct 43.6 (34.0-46.0) % MCV 99.9 (80.0-100.0) fL MCH 31.0 (25.0-35.0) pg MCHC 31.1 (31.0-37.0) g/dL RDW 14.0 (11.5-15.5) % Plt Count 342 (150-450) k/uL MPV 8.0 Neutrophils % 71 % Lymphocytes % 20 % Monocytes % 6 % Eosinophils % 1 % Basophils % 1 % Neutrophils # 9.7 H (1.3-7.7) k/uL Lymphocytes # 2.8 (1.0-4.8) k/uL Monocytes # 0.8 (0-1.0) k/uL Eosinophils # 0.2 (0-0.7) k/uL Basophils # 0.1 (0-0.2) k/uL Hypochromasia Slight Sodium 137 (137-145) mmol/L Potassium 5.1 (3.5-5.1) mmol/L Chloride 95 L (98-107) mmol/L Carbon Dioxide 11 L (22-30) mmol/L Anion Gap 31 mmol/L BUN 21 H (7-17) mg/dL Creatinine 6.04 H (0.52-1.04) mg/dL Est GFR (CKD-EPI)AfAm 8 (>60 ml/min/1.73 sqM) Est GFR (CKD-EPI)NonAf 7 (>60 ml/min/1.73 sqM) Glucose 70 L (74-99) mg/dL Lactic Ac Sepsis Rflx Plasma Lactic Acid Maury (0.7-2.0) mmol/L Calcium 9.5 (8.4-10.2) mg/dL Total Bilirubin 0.6 (0.2-1.3) mg/dL AST 28 (14-36) U/L ALT 21 (4-34) U/L Alkaline Phosphatase 66 (38-126) U/L Total Protein 6.8 (6.3-8.2) g/dL Albumin 4.2 (3.5-5.0) g/dL Lipase 85 (23-300) U/L Urine Color Urine Appearance (Clear) Urine pH (5.0-8.0) Ur Specific [place] (1.001-1.035) Urine Protein (Negative) Urine Glucose (UA) (Negative) Urine Ketones (Negative) Urine Blood (Negative) Urine Nitrite (Negative) Urine Bilirubin (Negative) Urine Urobilinogen (<2.0) mg/dL Ur Leukocyte Esterase (Negative) Urine RBC (0-5) /hpf Urine WBC (0-5) /hpf Ur Squamous Epith Cells (0-4) /hpf Urine Bacteria (None) /hpf Urine Mucus (None) /hpf Urine Yeast (Budding) (None) /hpf Influenza Type A RNA (Not Detectd) Influenza Type B (PCR) (Not Detectd) 05/27/22 05/27/22 05/27/22 Range/Units 10:11 10:11 10:11 WBC (3.8-10.6) k/uL RBC (3.80-5.40) m/uL Hgb (11.4-16.0) gm/dL Hct (34.0-46.0) % MCV (80.0-100.0) fL MCH (25.0-35.0) pg MCHC (31.0-37.0) g/dL RDW (11.5-15.5) % Plt Count (150-450) k/uL MPV Neutrophils % % Lymphocytes % % Monocytes % % Eosinophils % % Basophils % % Neutrophils # (1.3-7.7) k/uL Lymphocytes # (1.0-4.8) k/uL Monocytes # (0-1.0) k/uL Eosinophils # (0-0.7) k/uL Basophils # (0-0.2) k/uL Hypochromasia Sodium (137-145) mmol/L Potassium (3.5-5.1) mmol/L Chloride (98-107) mmol/L Carbon Dioxide (22-30) mmol/L Anion Gap mmol/L BUN (7-17) mg/dL Creatinine (0.52-1.04) mg/dL Est GFR (CKD-EPI)AfAm (>60 ml/min/1.73 sqM) Est GFR (CKD-EPI)NonAf (>60 ml/min/1.73 sqM) Glucose (74-99) mg/dL Lactic Ac Sepsis Rflx Plasma Lactic Acid Maury 9.1 H* (0.7-2.0) mmol/L Calcium (8.4-10.2) mg/dL Total Bilirubin (0.2-1.3) mg/dL AST (14-36) U/L ALT (4-34) U/L Alkaline Phosphatase (38-126) U/L Total Protein (6.3-8.2) g/dL Albumin (3.5-5.0) g/dL Lipase (23-300) U/L Urine Color Light Yellow Urine Appearance Cloudy H (Clear) Urine pH 5.5 (5.0-8.0) Ur Specific [place] 1.007 (1.001-1.035) Urine Protein 1+ H (Negative) Urine Glucose (UA) Trace H (Negative) Urine Ketones 1+ H (Negative) Urine Blood Small H (Negative) Urine Nitrite Negative (Negative) Urine Bilirubin Negative (Negative) Urine Urobilinogen <2.0 (<2.0) mg/dL Ur Leukocyte Esterase Small H (Negative) Urine RBC 4 (0-5) /hpf Urine WBC 11 H (0-5) /hpf Ur Squamous Epith Cells 24 H (0-4) /hpf Urine Bacteria Rare H (None) /hpf Urine Mucus Rare H (None) /hpf Urine Yeast (Budding) Few H (None) /hpf Influenza Type A RNA Not Detected (Not Detectd) Influenza Type B (PCR) Not Detected (Not Detectd) 05/27/22 Range/Units 10:42 WBC (3.8-10.6) k/uL RBC (3.80-5.40) m/uL Hgb (11.4-16.0) gm/dL Hct (34.0-46.0) % MCV (80.0-100.0) fL MCH (25.0-35.0) pg MCHC (31.0-37.0) g/dL RDW (11.5-15.5) % Plt Count (150-450) k/uL MPV Neutrophils % % Lymphocytes % % Monocytes % % Eosinophils % % Basophils % % Neutrophils # (1.3-7.7) k/uL Lymphocytes # (1.0-4.8) k/uL Monocytes # (0-1.0) k/uL Eosinophils # (0-0.7) k/uL Basophils # (0-0.2) k/uL Hypochromasia Sodium (137-145) mmol/L Potassium (3.5-5.1) mmol/L Chloride (98-107) mmol/L Carbon Dioxide (22-30) mmol/L Anion Gap mmol/L BUN (7-17) mg/dL Creatinine (0.52-1.04) mg/dL Est GFR (CKD-EPI)AfAm (>60 ml/min/1.73 sqM) Est GFR (CKD-EPI)NonAf (>60 ml/min/1.73 sqM) Glucose (74-99) mg/dL Lactic Ac Sepsis Rflx Y Plasma Lactic Acid Maury (0.7-2.0) mmol/L Calcium (8.4-10.2) mg/dL Total Bilirubin (0.2-1.3) mg/dL AST (14-36) U/L ALT (4-34) U/L Alkaline Phosphatase (38-126) U/L Total Protein (6.3-8.2) g/dL Albumin (3.5-5.0) g/dL Lipase (23-300) U/L Urine Color Urine Appearance (Clear) Urine pH (5.0-8.0) Ur Specific [place] (1.001-1.035) Urine Protein (Negative) Urine Glucose (UA) (Negative) Urine Ketones (Negative) Urine Blood (Negative) Urine Nitrite (Negative) Urine Bilirubin (Negative) Urine Urobilinogen (<2.0) mg/dL Ur Leukocyte Esterase (Negative) Urine RBC (0-5) /hpf Urine WBC (0-5) /hpf Ur Squamous Epith Cells (0-4) /hpf Urine Bacteria (None) /hpf Urine Mucus (None) /hpf Urine Yeast (Budding) (None) /hpf Influenza Type A RNA (Not Detectd) Influenza Type B (PCR) (Not Detectd) Disposition Clinical Impression: Nausea and vomiting, Dehydration, JUAN RAMON (acute kidney injury), Lactic acid acidosis, Hypoglycemia Disposition: [facility] Condition: Serious Is patient prescribed a controlled substance at d/c from ED?: No Time of Disposition: 11:19 Decision to Admit Reason: Admit from EC Decision Date: 05/27/22 Decision Time: 11:19
[2022-05-27] MEDS ORDERED: SODIUM CHLORIDE 0.9% 1,000 ML IV SCH ×2 (11:30→21:30)
[2022-05-27 11:45] LABS: Appearance,Urine Cloudy (Clear); Bacteria,Urine Rare /hpf; Bilirubin,Urine Negative (Negative); Blood,Urine Small (Negative); Budding Yeast,Urine Few /hpf; Color,Urine Light Yellow; Glucose,Urine (UA) Trace (Negative); Ketones,Urine 1+ (Negative); Leukocyte Esterase,Urine Small (Negative); Mucus,Urine Rare /hpf; Nitrite,Urine Negative (Negative); PH, Urine 5.5 (5.0-8.0); Protein,Urine 1+ (Negative); RBC,Urine 4 /hpf (0-5); Specific Gravity,Urine 1.007 (1.001-1.035); Squamous Epithelial Cell,Urine 24 /hpf (0-4); Urobilinogen,Urine <2.0 mg/dL (<2.0); WBC,Urine 11 /hpf (0-5)
--- NOTE | 2022-05-27 12:22 | US ---
EXAMINATION TYPE: US renals and bladder DATE OF EXAM: 05/27/2022 COMPARISON: 03/04/22 CLINICAL HISTORY: renal failure. Patient states she is unable to urinate. Abnormal labs. Patient sumeet camara had bladder Rea inserted prior to ultrasound. TECHNIQUE: Multiple sonographic images of the kidneys and bladder are obtained. FINDINGS: EXAM MEASUREMENTS: Right Kidney: 10.9 x 5.9 x 5.5 cm Left Kidney: 11.2 x 5.1 x 5.7 cm No hydronephrosis on either side. Right Kidney: Slightly echogenic upper pole cortex . Left Kidney: There increased cortical echogenicity. Dromedary hump visualized. Bladder: anechoic, rea seen Bilateral Jets not seen due to bladder rea IMPRESSION: 1. No hydronephrosis. 2. Echogenic renal cortex suggests underlying chronic medical renal disease. 3. Rea catheter balloon noted within the bladder lumen.
--- NOTE | 2022-05-27 12:36 | P.HPIM ---
History of Present Illness Patient with [id number] female came in with compensative and tractable nausea vomiting has been going on for few days and patient is unable to urinate. Patient is found to have serum creatinine of 6. Patient BUN is only 22 patient probably has acute to be necrosis patient is also on multiple medications that can affect the kidney including ALETA inhibitor metformin and the and this aids. Nephrology was consulted and also the kidneys being obtain patient was on antibiotics for UTI recently. Patient to his creatinine was within normal limits. REVIEW OF SYSTEMS: CONSTITUTIONAL: No fever, no malaise, no fatigue. HEENT: No recent visual problems or hearing problems. Denied any sore throat. CARDIOVASCULAR: No chest pain, orthopnea, PND, no palpitations, no syncope. PULMONARY: No shortness of breath, no cough, no hemoptysis. GASTROINTESTINAL: no abdominal pain. NEUROLOGICAL: No headaches, no weakness, no numbness. HEMATOLOGICAL: Denies any bleeding or petechiae. GENITOURINARY: Denies any burning micturition, frequency, or urgency. MUSCULOSKELETAL/RHEUMATOLOGICAL: Denies any joint pain, swelling, or any muscle pain. ENDOCRINE: Denies any polyuria or polydipsia. The rest of the 14-point review of systems is negative. PHYSICAL EXAMINATION: GENERAL: The patient is alert and oriented x3, not in any acute distress. Well developed, well nourished. HEENT: Pupils are round and equally reacting to light. EOMI. No scleral icterus. No conjunctival pallor. Normocephalic, atraumatic. No pharyngeal erythema. No thyromegaly. CARDIOVASCULAR: S1 and S2 present. No murmurs, rubs, or gallops. PULMONARY: Chest is clear to auscultation, no wheezing or crackles. ABDOMEN: Soft, nontender, nondistended, normoactive bowel sounds. No palpable organomegaly. MUSCULOSKELETAL: No joint swelling or deformity. EXTREMITIES: No cyanosis, clubbing, or pedal edema. NEUROLOGICAL: Gross neurological examination did not reveal any focal deficits. SKIN: No rashes. Assessment and plan -Acute renal failure probably acute tubular necrosis, multifactorial from prerenal of nausea vomiting and dehydration along with the nostril anti- inflammatory medications and angiotensin receptor blockers. Will hold off all his medications along with omeprazole. Nephrology was consulted and close clinical monitoring monitoring of I's and O's ultrasound of the kidney. -Nausea vomiting secondary to gastroenteritis symptoms already improved at this time-type 2 diabetes mellitus -Hyperlipidemia -Hypertension hold off on angiotensin receptor blockers because of acute renal failure -Sleep apnea uses CPAP machine at home -depression -Leukocytosis: Reactive secondary to nausea vomiting. DVT prophylaxis: Subcutaneous heparin Past Medical History Past Medical History: Asthma, Diabetes Mellitus, Fibromyalgia, GERD/Reflux, Hyperlipidemia, Hypertension, Osteoarthritis (OA), Sleep Apnea/CPAP/BIPAP Additional Past Medical History / Comment(s): IBS History of Any Multi-Drug Resistant Organisms: None Reported Past Surgical History: Section, Orthopedic Surgery Additional Past Surgical History / Comment(s): right wrist surg. x 4, eye surgery Past Anesthesia/Blood Transfusion Reactions: No Reported Reaction Past Psychological History: Anxiety, Depression Smoking Status: Never smoker Past Alcohol Use History: None Reported Past Drug Use History: None Reported - Past Family History Mother Family Medical History: Cancer Medications and Allergies Home Medications Medication Instructions Recorded Confirmed Type Dicyclomine [Bentyl] 20 mg PO TID 02/14/15 05/27/22 History Simvastatin [Zocor] 40 mg PO HS 02/14/15 05/27/22 History metFORMIN HCL [Glucophage] 1,000 mg PO BID 02/14/15 05/27/22 History Aspirin EC [Ecotrin Low Dose] 81 mg PO DAILY #30 tablet. 10/06/16 05/27/22 Rx Linagliptin [Tradjenta] 5 mg PO HS 05/30/20 05/27/22 History Telmisartan [Micardis] 40 mg PO DAILY 05/30/20 05/27/22 History ARIPiprazole [Abilify] 4 mg PO DAILY 05/27/22 05/27/22 History Azelastine HCl [Astepro] 1 spray NASAL BID 05/27/22 05/27/22 History Cyclobenzaprine [Flexeril] 5 mg PO TID 05/27/22 05/27/22 History DULoxetine HCL [Cymbalta] 60 mg PO DAILY 05/27/22 05/27/22 History Ergocalciferol [Vitamin D2 (1250 1,250 mcg PO Q14D 05/27/22 05/27/22 History Mcg = 43151 Iu)] Ferrous Sulfate [Feosol] 325 mg PO DAILY 05/27/22 05/27/22 History Fexofenadine HCl 180 mg PO HS 05/27/22 05/27/22 History Fluticasone Nasal [place] [Flonase 2 spray EA NOSTRIL BID 05/27/22 05/27/22 History Nasal [place]] Folic Acid 0.8 mg PO BID 05/27/22 05/27/22 History Meloxicam [Mobic] 15 mg PO DAILY 05/27/22 05/27/22 History Metoprolol Tartrate [Lopressor] 25 mg PO DAILY 05/27/22 05/27/22 History Montelukast [Singulair] 10 mg PO HS 05/27/22 05/27/22 History Naltrexone 3mg 3 mg PO HS 05/27/22 05/27/22 History Omeprazole 40 mg PO BID 05/27/22 05/27/22 History Pioglitazone [Actos] 30 mg PO DAILY 05/27/22 05/27/22 History Propylene Glycol [Systane Complete] 1 drop BOTH EYES DAILY 05/27/22 05/27/22 History Refresh Optical Gel 1 applic OPHTHALMIC 05/27/22 05/27/22 History Thiamine [Vitamin B-1] 100 mg PO HS 05/27/22 05/27/22 History Zolpidem [Ambien] 10 mg PO HS 05/27/22 05/27/22 History Allergies Allergy/AdvReac Type Severity Reaction Status Date / Time wheat Allergy Unknown Verified 05/27/22 11:46 Physical Exam Vitals: Vital Signs Temp Pulse Resp BP Pulse Ox 05/27/22 10:44 97 F L 99 16 161/94 100 05/27/22 09:11 97.9 F 101 H 18 135/82 100 Intake and Output 05/26/22 05/27/22 05/27/22 22:59 06:59 14:59 Output Total 50 Balance -50 Output: Urine 50 Uretheral (Villavicencio) 50 Other: Weight 74.843 kg Results CBC & Chem 7: 05/27/22 09:31 05/27/22 09:31 Labs: Abnormal Lab Results - Last 24 Hours (Table) 05/27/22 05/27/22 05/27/22 Range/Units 09:31 09:31 10:11 WBC 13.6 H (3.8-10.6) k/uL Neutrophils # 9.7 H (1.3-7.7) k/uL Chloride 95 L (98-107) mmol/L Carbon Dioxide 11 L (22-30) mmol/L BUN 21 H (7-17) mg/dL Creatinine 6.04 H (0.52-1.04) mg/dL Glucose 70 L (74-99) mg/dL Plasma Lactic Acid Maury (0.7-2.0) mmol/L Urine Appearance Cloudy H (Clear) Urine Protein 1+ H (Negative) Urine Glucose (UA) Trace H (Negative) Urine Ketones 1+ H (Negative) Urine Blood Small H (Negative) Ur Leukocyte Esterase Small H (Negative) Urine WBC 11 H (0-5) /hpf Ur Squamous Epith Cells 24 H (0-4) /hpf Urine Bacteria Rare H (None) /hpf Urine Mucus Rare H (None) /hpf Urine Yeast (Budding) Few H (None) /hpf 05/27/22 Range/Units 10:11 WBC (3.8-10.6) k/uL Neutrophils # (1.3-7.7) k/uL Chloride (98-107) mmol/L Carbon Dioxide (22-30) mmol/L BUN (7-17) mg/dL Creatinine (0.52-1.04) mg/dL Glucose (74-99) mg/dL Plasma Lactic Acid Ma[place] 9.1 H* (0.7-2.0) mmol/L Urine Appearance (Clear) Urine Protein (Negative) Urine Glucose (UA) (Negative) Urine Ketones (Negative) Urine Blood (Negative) Ur Leukocyte Esterase (Negative) Urine WBC (0-5) /hpf Ur Squamous Epith Cells (0-4) /hpf Urine Bacteria (None) /hpf Urine Mucus (None) /hpf Urine Yeast (Budding) (None) /hpf
[2022-05-27] MEDS: METOPROLOL TARTRATE 25 MG TAB PO SCH (13:45)
[2022-05-27] MEDS: ARIPiprazole 2 MG TAB PO SCH (13:45)
[2022-05-27] MEDS: ONDANSETRON 4 MG/2 ML VIAL IVP PRN ×2 (13:49→22:42)
[2022-05-27] MEDS ORDERED: ACETAMINOPHEN TAB 325 MG TAB PO PRN (18:55)
[2022-05-27 20:17] LABS: Glucose,Whole Blood 50 mg/dL (70-110)
[2022-05-27] MEDS ORDERED: DEXTROSE 50% SYRINGE 50 ML IVP ONE (20:40)
[2022-05-27 20:41] LABS: Glucose,Whole Blood 46 mg/dL (70-110)
[2022-05-27 21:00] LABS: Glucose,Whole Blood 151 mg/dL (70-110)
[2022-05-27] MEDS ORDERED: LINAGLIPTIN 5 MG TABLET PO SCH (21:00)
[2022-05-27] MEDS: DEXTROSE 5% IN WATER 1,000 ML with SODIUM BICARB (1 MEQ/ML) 150 ML IV SCH (22:42)
[2022-05-27] MEDS: AZELASTINE 137MCG/SPRAY NASAL SCH (22:43)
[2022-05-27] MEDS: ATORVASTATIN 20 MG TAB PO SCH (22:43)
[2022-05-27 23:34] LABS: Glucose,Whole Blood 103 mg/dL (70-110)
[2022-05-28 01:23] LABS: Glucose,Whole Blood 115 mg/dL (70-110)
[2022-05-28 05:38] LABS: Glucose,Whole Blood 113 mg/dL (70-110)
[2022-05-28 06:50] LABS: Basophils % (A) 0 %; Eosinophils % (A) 0 %; HGB 12.5 gm/dL (11.4-16.0); Hypochromasia Slight; Lymphocytes % (A) 15 %; MCH 31.1 pg (25.0-35.0); MCHC 31.2 g/dL (31.0-37.0); MCV 99.7 fL (80.0-100.0); Mean Platelet Volume 8.8; Monocytes # (A) 0.7 k/uL (0-1.0); Monocytes % (A) 5 %; Neutrophils # (A) 10.9 k/uL (1.3-7.7); Neutrophils % (A) 79 %; Platelet Count 372 k/uL (150-450); RBC 4.01 m/uL (3.80-5.40); RDW 14.1 % (11.5-15.5); WBC 13.8 k/uL (3.8-10.6)
[2022-05-28 07:05] LABS: Calcium 8.7 mg/dL (8.4-10.2); Potassium 5.6 mmol/L (3.5-5.1)
[2022-05-28] MEDS: DEXTROSE 5% IN WATER 1,000 ML with SODIUM BICARB (1 MEQ/ML) 150 ML IV SCH ×2 (08:33→17:54)
[2022-05-28] MEDS ORDERED: SODIUM BICARB 8.4% 50 ML SYR (1 MEQ/ML) IV STA (08:39)
[2022-05-28] MEDS: ONDANSETRON 4 MG/2 ML VIAL IVP PRN (08:48)
--- NOTE | 2022-05-28 11:47 | P.NPCON ---
History of Present Illness - Reason for Consult acute renal failure - History of Present Illness Patient is a 57-year-old female with history of type 2 diabetes maintained on Glucophage and Actos as outpatient. Patient was admitted to the hospital with complaints of increased nausea and vomiting over the last couple of days. Patient also noticed not having had any urine output for about 30 hours prior to admission. Serum creatinine was 6.0 on admission. Previous creatinine 1.0 on 03/20/2022. Serum CO2 was 7 and patient has severe lactic acidosis with lactic acid progressively increasing up to 13.1 today Patient has been maintained on IV bicarb which was increased to 150 mL per minute last night. Acidosis has not improved Patient remains nauseated She has had fair urine output of about 2.2 L thus far. Patient has had multiple fluid boluses as well Patient admits to taking Mobic on a daily basis. She has not had any other new medications that she started recently No history of fevers No history of diarrhea No history of cough or abdominal pain. Patient was maintained on angiotensin receptor blockers at home Review of Systems As per HPI Past Medical History Past Medical History: Asthma, Diabetes Mellitus, Fibromyalgia, GERD/Reflux, Hyperlipidemia, Hypertension, Osteoarthritis (OA), Sleep Apnea/CPAP/BIPAP Additional Past Medical History / Comment(s): IBS, UTI recently (February 2022) History of Any Multi-Drug Resistant Organisms: None Reported Past Surgical History: Section, Orthopedic Surgery Additional Past Surgical History / Comment(s): right wrist surg. x 5, eye surgery, rhinoplasty Past Anesthesia/Blood Transfusion Reactions: No Reported Reaction Past Psychological History: Anxiety, Depression Smoking Status: Never smoker Past Alcohol Use History: None Reported Past Drug Use History: None Reported - Past Family History Brother(s) Family Medical History: Myocardial Infarction ([place]) Additional Family Medical History / Comment(s): three brothers had [place], CABG Mother Family Medical History: Cancer, Coronary Artery Disease (CAD) Medications and Allergies Home Medications Medication Instructions Recorded Confirmed Type Dicyclomine [Bentyl] 20 mg PO TID 02/14/15 05/27/22 History Simvastatin [Zocor] 40 mg PO HS 02/14/15 05/27/22 History metFORMIN HCL [Glucophage] 1,000 mg PO BID 02/14/15 05/27/22 History Aspirin EC [Ecotrin Low Dose] 81 mg PO DAILY #30 tablet. 10/06/16 05/27/22 Rx Linagliptin [Tradjenta] 5 mg PO HS 05/30/20 05/27/22 History Telmisartan [Micardis] 40 mg PO DAILY 05/30/20 05/27/22 History ARIPiprazole [Abilify] 4 mg PO DAILY 05/27/22 05/27/22 History Azelastine HCl [Astepro] 1 spray NASAL BID 05/27/22 05/27/22 History Cyclobenzaprine [Flexeril] 5 mg PO TID 05/27/22 05/27/22 History DULoxetine HCL [Cymbalta] 60 mg PO DAILY 05/27/22 05/27/22 History Ergocalciferol [Vitamin D2 (1250 1,250 mcg PO Q14D 05/27/22 05/27/22 History Mcg = 49676 Iu)] Ferrous Sulfate [Feosol] 325 mg PO DAILY 05/27/22 05/27/22 History Fexofenadine HCl 180 mg PO HS 05/27/22 05/27/22 History Fluticasone Nasal [place] [Flonase 2 spray EA NOSTRIL BID 05/27/22 05/27/22 History Nasal [place]] Folic Acid 0.8 mg PO BID 05/27/22 05/27/22 History Meloxicam [Mobic] 15 mg PO DAILY 05/27/22 05/27/22 History Metoprolol Tartrate [Lopressor] 25 mg PO DAILY 05/27/22 05/27/22 History Montelukast [Singulair] 10 mg PO HS 05/27/22 05/27/22 History Naltrexone 3mg 3 mg PO HS 05/27/22 05/27/22 History Omeprazole 40 mg PO BID 05/27/22 05/27/22 History Pioglitazone [Actos] 30 mg PO DAILY 05/27/22 05/27/22 History Propylene Glycol [Systane Complete] 1 drop BOTH EYES DAILY 05/27/22 05/27/22 History Refresh Optical Gel 1 applic OPHTHALMIC HS 05/27/22 05/27/22 History Thiamine [Vitamin B-1] 100 mg PO HS 05/27/22 05/27/22 History Zolpidem [Ambien] 10 mg PO HS 05/27/22 05/27/22 History Allergies Allergy/AdvReac Type Severity Reaction Status Date / Time wheat Allergy Unknown Verified 05/27/22 11:46 Physical Exam Vitals: Vital Signs Temp Pulse Pulse Resp BP BP Pulse Ox 05/28/22 11:27 97.6 F 99 17 136/76 100 05/28/22 08:31 88 16 05/28/22 08:25 97.8 F 88 16 137/62 100 05/28/22 07:01 97.8 F 86 18 140/65 100 05/28/22 03:54 97.7 F 87 16 131/67 100 05/27/22 23:19 98.2 F 77 16 145/70 99 05/27/22 20:59 98.6 F 05/27/22 19:40 96.3 F L 77 16 144/67 100 05/27/22 18:36 85 16 139/81 100 05/27/22 13:46 71 18 139/81 100 Intake and Output 05/27/22 05/28/22 05/28/22 22:59 06:59 14:59 Intake Total 690 0 Output Total 420 1360 0 Balance -420 -670 0 Intake: Intake, IV Titration 690 Amount Dextrose 5% in Water 1, 240 000 ml @ 120 mls/hr IV . Q9H35M SIDNEY with Sodium Bicarb (1 Meq/ml) 150 ml Rx#:[id number] Sodium Chloride 0.9% 1, 200 000 ml @ 100 mls/hr IV . Q10H SIDNEY Rx#:[id number] Sodium Chloride 0.9% 1, 150 000 ml @ 75 mls/hr IV . [id number] SIDNEY Rx#:[id number] cefTRIAXone 1 gm In 100 Sodium Chloride 0.9% 50 ml @ 100 mls/hr IVPB ONCE STA Rx#:[id number] Oral 0 Output: Urine 420 1360 0 Uretheral (Villavicencio) 1360 0 Other: Voiding Method Indwelling Catheter Indwelling Catheter Indwelling Catheter Weight 74.843 kg 72.7 kg Awake, comfortable, not in any acute distress Nauseated Alert oriented 3 Examination of the heart S1 and S2 Examination of the lungs bilateral breath sounds are heard Abdomen is soft nontender Examination of the lower extremities shows no significant edema [employer] exam grossly intact Results - Lab Results Most recent lab results Calcium 8.7 mg/dL (8.4-10.2) 05/28/22 05:28 05/28/22 05:28 05/28/22 05:28 Assessment and Plan Assessment: 1. Acute kidney injury ATN currently nonoliguric. UA shows 1+ protein and 1+ blood. Urine eosinophils negative. Ultrasound shows no evidence of obstruction. Previous creatinine 1.0 on 03/20/2022 2. Severe metabolic acidosis associated with acute kidney injury and lactic acidosis. Currently not improving with bicarb drip. We'll proceed with renal replacement therapy for refractory acidosis. 3. Lactic acidosis secondary to metformin 4. Pyuria, rule out UTI 5. Type 2 diabetes maintained on metformin and crit Jignesh as outpatient 6. Hyperkalemia associated with acute kidney injury and severe metabolic acidosis Plan: Continue with IV bicarb Continue to hold off on metformin Proceed with dialysis. Discussed with patient she is agreeable. We will consult vascular surgery and plan for first treatment today as patient has significant nausea most likely associated with uremia. Check CK levels
[2022-05-28 12:00] LABS: INR 1.1 (<1.2); Prothrombin Time 11.9 sec (9.0-12.0)
[2022-05-28 12:02] LABS: Glucose,Whole Blood 118 mg/dL (70-110)
[2022-05-28] MEDS ORDERED: TRIMETHOBENZAMIDE 100 MG/ML 2 ML VIAL IM PRN (12:51)
[2022-05-28] MEDS: ARIPiprazole 2 MG TAB PO SCH (13:25)
[2022-05-28] MEDS: ASPIRIN 81 MG PO SCH (13:26)
[2022-05-28] MEDS: DULoxetine HCL 60 MG CAPSULE.DR PO SCH (13:26)
[2022-05-28] MEDS: METOPROLOL TARTRATE 25 MG TAB PO SCH (13:26)
[2022-05-28] MEDS: AZELASTINE 137MCG/SPRAY NASAL SCH ×2 (13:26→21:28)
[2022-05-28] MEDS ORDERED: MIDAZOLAM 2 MG/2 ML VIAL IV ONE (14:09)
[2022-05-28] MEDS ORDERED: LIDOCAINE 1% INJ 10MG/ML (30 ML VIAL-PF) SQ ONE (14:10)
--- NOTE | 2022-05-28 15:14 | P.PN ---
Subjective Progress Note Date: 05/28/22 Patient with [id number] female came in with compensative and tractable nausea vomiting has been going on for few days and patient is unable to urinate. Patient is found to have serum creatinine of 6. Patient BUN is only 22 patient probably has acute to be necrosis patient is also on multiple medications that can affect the kidney including ALETA inhibitor metformin and the and this aids. Nephrology was consulted and also the kidneys being obtain patient was on antibiotics for UTI recently. Patient to his creatinine was within normal limits. 05/28/2022 Patient evaluated today resting in bed. Continues with ongoing nausea and had an episode of emesis today most likely from acute renal failure. Patient states she was recently treated outpatient for acute UTI a few months ago. Med review shows patient was treated for UTI with cipro for 10 days and also keflex was sent 2 days prior in February of this year. with Patient does have indwelling catheter in place and urine output in the last 24 hours -1.370 Liters. Nephrology is following and patient is recommend for renal replacement therapy and vascular services has been placed on consultation for temporary dialysis access. Labs today showing white count stable at 13.8, sodium 139, potassium 5.6, CO2 6, chloride 95. Creatinine is increased up to 6.71 today. Lactic acid continues to remain elevated at 15.1, which patient has nausea vomiting over the last few days can be a result of dehydration, also possible metformin inducted lactic aci dosis. Procalcitonin level has been ordered and also blood culture. Urine culture is currently pending preliminary negative so far and patient is continued on empiric antibiotic coverage with IV ceftriaxone. Patient is also on bicarb gtt. Antiemetics with zofran, tigan. Patient remains afebrile, blood pressure 136/76 and 100% on room air. Review of Systems Constitutional: Denied any fatigue denied any fever. Cardio vascular: denied any chest pain, palpitations Gastrointestinal: Reports nausea, vomiting, no diarrhea. Pulmonary: Denied any shortness of breath cough Neurologic denied any new focal deficits All inpatient medications were reviewed and appropriate changes in these medications as dictated in the interval history and assessment and plan. PHYSICAL EXAMINATION: GENERAL: The patient is alert and oriented x3, not in any acute distress. Well developed, well nourished. HEENT: Pupils are round and equally reacting to light. EOMI. No scleral icterus. No conjunctival pallor. Normocephalic, atraumatic. No pharyngeal erythema. No thyromegaly. CARDIOVASCULAR: S1 and S2 present. No murmurs, rubs, or gallops. PULMONARY: Chest is clear to auscultation, no wheezing or crackles. ABDOMEN: Soft, nontender, nondistended, normoactive bowel sounds. No palpable organomegaly. Indwelling catheter in place, clear, yellow. MUSCULOSKELETAL: No joint swelling or deformity. EXTREMITIES: No cyanosis, clubbing, or pedal edema. NEUROLOGICAL: Gross neurological examination did not reveal any focal deficits. SKIN: No rashes. Assessment and plan Assessment -Acute renal failure most likely acute tubular necrosis multifactorial patient does take angiotensin receptor quirino at home as well as NSAID daily. No evidence for obstruction. -Nausea vomiting most likely from acute renal failure -Severe metabolic acidosis from lactic acidosis as well as acute renal failure -Hypernatremia secondary to above -Lactic acidosis multifactorial component of metformin induced also with ongoing nausea vomiting -Rule out UTI, urine culture pending, continues on empiric antibiotic coverage -type 2 diabetes mellitus -Hyperlipidemia -Hypertension, losartan currently on hold -Sleep apnea uses CPAP machine at home -depression -Leukocytosis: Reactive secondary to nausea vomiting. DVT prophylaxis: Subcutaneous heparin Plan Vascular consult for dialysis access Plan for renal replacement therapy today Nephrology consultation Continue on bicarb gtt Antiemetics as needed Continue on empiric antibiotic coverage Urine culture pending Continue to hold metformin, actos, mobic, telmisartan Repeat labs in AM The impression and plan of care has been dictated by Roselia Arenas, Nurse Practitioner as directed. Dr. Chen MD I have performed a history and physical examination and medical decision making of this patient, discussed the same with the dictator, and agree with the dictators assessment and plan as written, documented as a scribe. Based on total visit time, I have performed more than 50% of this visit. Objective - Vital Signs Vital signs: Vital Signs Temp 97.6 F 05/28/22 11:27 Pulse 99 05/28/22 11:27 Resp 17 05/28/22 11:27 BP 136/76 05/28/22 11:27 Pulse Ox 100 05/28/22 11:27 FiO2 Intake & Output 05/27/22 05/28/22 05/28/22 18:59 06:59 18:59 Intake Total 690 0 Output Total 920 1360 700 Balance -920 -670 -700 Weight 74.843 kg 72.7 kg 72.7 kg Intake: Intake, IV Titration 690 Amount Dextrose 5% in Water 1, 240 000 ml @ 150 mls/hr IV . Q7H40M SIDNEY with Sodium Bicarb (1 Meq/ml) 150 ml Rx#:[id number] Sodium Chloride 0.9% 1, 200 000 ml @ 100 mls/hr IV . Q10H SIDNEY Rx#:[id number] Sodium Chloride 0.9% 1, 150 000 ml @ 75 mls/hr IV . [id number] SIDNEY Rx#:[id number] cefTRIAXone 1 gm In 100 Sodium Chloride 0.9% 50 ml @ 100 mls/hr IVPB ONCE STA Rx#:[id number] Oral 0 Output: Urine 920 1360 700 Uretheral (Villavicencio) 50 1360 0 Other: Voiding Method Indwelling Catheter Indwelling Catheter - Labs CBC & Chem 7: 05/28/22 05:28 05/28/22 05:28 Labs: Abnormal Lab Results - Last 24 Hours (Table) 05/27/22 05/27/22 05/27/22 Range/Units 16:20 19:16 20:16 WBC (3.8-10.6) k/uL Neutrophils # (1.3-7.7) k/uL Potassium (3.5-5.1) mmol/L Chloride (98-107) mmol/L Carbon Dioxide (22-30) mmol/L BUN (7-17) mg/dL Creatinine (0.52-1.04) mg/dL Glucose (74-99) mg/dL POC Glucose (mg/dL) 50 L (70-110) mg/dL Plasma Lactic Acid Maury 8.6 H* 9.8 H* (0.7-2.0) mmol/L 05/27/22 05/27/22 05/27/22 Range/Units 20:39 21:00 21:59 WBC (3.8-10.6) k/uL Neutrophils # (1.3-7.7) k/uL Potassium (3.5-5.1) mmol/L Chloride (98-107) mmol/L Carbon Dioxide (22-30) mmol/L BUN (7-17) mg/dL Creatinine (0.52-1.04) mg/dL Glucose (74-99) mg/dL POC Glucose (mg/dL) 46 L 151 H (70-110) mg/dL Plasma Lactic Acid Maury 10.9 H* (0.7-2.0) mmol/L 05/28/22 05/28/22 05/28/22 Range/Units 00:57 01:22 05:28 WBC 13.8 H (3.8-10.6) k/uL Neutrophils # 10.9 H (1.3-7.7) k/uL Potassium (3.5-5.1) mmol/L Chloride (98-107) mmol/L Carbon Dioxide (22-30) mmol/L BUN (7-17) mg/dL Creatinine (0.52-1.04) mg/dL Glucose (74-99) mg/dL POC Glucose (mg/dL) 115 H (70-110) mg/dL Plasma Lactic Acid Maruy 10.7 H* (0.7-2.0) mmol/L 05/28/22 05/28/22 05/28/22 Range/Units 05:28 05:28 05:37 WBC (3.8-10.6) k/uL Neutrophils # (1.3-7.7) k/uL Potassium 5.6 H (3.5-5.1) mmol/L Chloride 95 L (98-107) mmol/L Carbon Dioxide 6 L* (22-30) mmol/L BUN 21 H (7-17) mg/dL Creatinine 6.71 H (0.52-1.04) mg/dL Glucose 141 H (74-99) mg/dL POC Glucose (mg/dL) 113 H (70-110) mg/dL Plasma Lactic Acid Maury 12.0 H* (0.7-2.0) mmol/L 05/28/22 05/28/22 05/28/22 Range/Units 09:24 12:00 13:15 WBC (3.8-10.6) k/uL Neutrophils # (1.3-7.7) k/uL Potassium (3.5-5.1) mmol/L Chloride (98-107) mmol/L Carbon Dioxide (22-30) mmol/L BUN (7-17) mg/dL Creatinine (0.52-1.04) mg/dL Glucose (74-99) mg/dL POC Glucose (mg/dL) 118 H (70-110) mg/dL Plasma Lactic Acid Maury 13.1 H* 15.1 H* (0.7-2.0) mmol/L Microbiology - Last 24 Hours (Table) 05/27/22 10:11 Urine Culture - Preliminary Urine,Clean Catch Assessment and Plan Time with Patient: Less than 30
--- NOTE | 2022-05-28 15:41 | IR ---
EXAMINATION TYPE: IR cvc insert non tunneled DATE OF EXAM: 05/28/2022 COMPARISON: NONE HISTORY: Fluoroscopy time. Fluoroscopy was provided to the referring clinician.
[2022-05-28 16:39] LABS: Glucose,Whole Blood 112 mg/dL (70-110)
[2022-05-28] MEDS ORDERED: BENZOCAINE/MENTHOL LOZENG 1 EACH LOZENGE MUCOUS MEM PRN (17:27)
[2022-05-28] MEDS ORDERED: BENZOCAINE SPRAY 1 CAN MUCOUS MEM PRN (19:26)
[2022-05-28 20:04] LABS: Glucose,Whole Blood 101 mg/dL (70-110)
[2022-05-28 20:43] LABS: Potassium 4.2 mmol/L (3.5-5.1)
[2022-05-28] MEDS: ATORVASTATIN 20 MG TAB PO SCH (21:28)
[2022-05-29] MEDS: DEXTROSE 5% IN WATER 1,000 ML with SODIUM BICARB (1 MEQ/ML) 150 ML IV SCH ×2 (00:57→09:21)
--- NOTE | 2022-05-29 01:38 | CONS ---
CONSULTATION HISTORY: This is a 57-year-old female, patient was seen in consultation for placement of dialysis catheter. The patient has history of acute kidney injury, also patient has history of severe metabolic acidosis and lactic acidosis. The patient also has history of pyuria, medical history of type 2 diabetes mellitus on metformin, hyperkalemia. MEDICAL HISTORY: History of diabetes mellitus, fibromyalgia, hyperlipidemia, hypertension, and sleep apnea. SURGICAL HISTORY: The patient has history of , some orthopedic surgery, right wrist surgery. PHYSICAL EXAMINATION: NECK: Supple, trachea central. CHEST: Clear. ABDOMEN: Soft, femorals are 1+ bilaterally. PLAN: Placement of dialysis catheter. Risks and complications were discussed. MMODL / IJN: [id number] /
[2022-05-29 02:16] LABS: Hepatitis B Surface AB- Quant 3.5 mIU/mL; Hepatitis B Surface Antibody Nonreactive (Nonreactive)
[2022-05-29 02:39] LABS: Glucose,Whole Blood 123 mg/dL (70-110)
[2022-05-29 02:59] LABS: Hepatitis B Surface Antigen Nonreactive (Nonreactive)
[2022-05-29 06:26] LABS: Glucose,Whole Blood 99 mg/dL (70-110)
--- NOTE | 2022-05-29 08:31 | OP ---
OPERATIVE REPORT PREOPERATIVE DIAGNOSIS: Wvmey-lb-scolhck renal failure. PROCEDURE PERFORMED: Ultrasound-guided 20 cm dialysis catheter placement with right femoral approach. DESCRIPTION OF PROCEDURE: The patient was brought to the cardiac cath lab manager. Right groin was prepped and draped in sterile manner. 1% lidocaine was infiltrated. Ultrasound-guided micropuncture introduced into the right common femoral vein. Micropuncture guidewire was passed, and 4-Amharic sheath advanced on top of the guidewire. Then, we passed a regular guidewire, and the dilator was advanced on the top of the guidewire. Then, we placed 20 cm dialysis catheter, guidewire was removed, flushed with heparin saline, hep- locked, secured with 3-0 nylon. Dressing applied. The patient tolerated the procedure well. MMODL / IJN: [id number] /
[2022-05-29 08:42] LABS: Basophils % (A) 0 %; Eosinophils # (A) 0.1 k/uL (0-0.7); Eosinophils % (A) 1 %; HCT 32.2 % (34.0-46.0); HGB 10.9 gm/dL (11.4-16.0); Lymphocytes # (A) 2.3 k/uL (1.0-4.8); Lymphocytes % (A) 27 %; MCH 31.7 pg (25.0-35.0); Mean Platelet Volume 9.2; Monocytes # (A) 0.7 k/uL (0-1.0); Monocytes % (A) 8 %; Neutrophils # (A) 5.2 k/uL (1.3-7.7); Neutrophils % (A) 63 %; Platelet Count 261 k/uL (150-450); RBC 3.45 m/uL (3.80-5.40); RDW 14.1 % (11.5-15.5); WBC 8.3 k/uL (3.8-10.6)
[2022-05-29 08:47] LABS: MCV 93.3 fL (80.0-100.0)
--- NOTE | 2022-05-29 08:58 | P.PN ---
Subjective Patient is seen for follow-up for acute kidney injury and severe metabolic acidosis, mostly lactic acidosis most likely associated with that form and use in the setting of acute kidney injury. Patient was started on dialysis yesterday due to intractable acidosis and uremic symptoms. This morning patient states she is feeling better. Patient remains on bicarb drip. She continues to have good urine output. Nausea has improved significantly. Patient is seen on hemodialysis today. Objective - Vital Signs Vital signs: Vital Signs Temp 97.8 F 05/29/22 08:00 Pulse 90 05/29/22 08:00 Resp 16 05/29/22 08:00 BP 111/71 05/29/22 08:00 Pulse Ox 97 05/29/22 08:00 FiO2 Intake & Output 05/28/22 05/29/22 05/29/22 18:59 06:59 18:59 Intake Total 0 1750 Output Total 2800 1600 Balance -2800 150 Weight 72.7 kg 72.3 kg Intake: Intake, IV Titration 1050 Amount Dextrose 5% in Water 1, 1050 000 ml @ 150 mls/hr IV . Q7H40M SIDNEY with Sodium Bicarb (1 Meq/ml) 150 ml Rx#:[id number] Oral 0 Hemodialysis 700 Output: Urine 2800 900 Uretheral (Villavicencio) 1050 900 Hemodialysis 700 Other: Voiding Method Indwelling Catheter Indwelling Catheter - Exam Awake, comfortable, not in any acute distress Examination of the heart S1 and S2 Examination lungs decreased breath sounds at the bases Abdomen is soft nontender Examination lower extremity shows no significant edema VOCATIONAL DIRECTOR exam is grossly intact Right femoral catheter - Labs CBC & Chem 7: 05/29/22 07:40 05/28/22 18:10 Labs: Abnormal Lab Results - Last 24 Hours (Table) 05/28/22 05/28/22 05/28/22 Range/Units 09:24 12:00 13:15 RBC (3.80-5.40) m/uL Hgb (11.4-16.0) gm/dL Hct (34.0-46.0) % POC Glucose (mg/dL) 118 H (70-110) mg/dL Plasma Lactic Acid Maury 13.1 H* 15.1 H* (0.7-2.0) mmol/L 05/28/22 05/29/22 05/29/22 Range/Units 16:37 02:37 07:40 RBC 3.45 L (3.80-5.40) m/uL Hgb 10.9 L (11.4-16.0) gm/dL Hct 32.2 L (34.0-46.0) % POC Glucose (mg/dL) 112 H 123 H (70-110) mg/dL Plasma Lactic Acid Maury (0.7-2.0) mmol/L Microbiology - Last 24 Hours (Table) 05/27/22 10:11 Urine Culture - Final Urine,Clean Catch Assessment and Plan Assessment: 1. Acute kidney injury ATN currently nonoliguric. UA shows 1+ protein and 1+ blood. Urine eosinophils negative. Ultrasound shows no evidence of obstruction. Previous creatinine 1.0 on 03/20/2022. Etiology is most likely severe hypovolemia and hypotension. Started on hemodialysis mostly for refractory acidosis. Patient did have significant nausea as well which could've been uremic symptom. 2. Severe metabolic acidosis associated with acute kidney injury and lactic acidosis. Currently not improving with bicarb drip. We'll proceed with renal replacement therapy for refractory acidosis. 3. Lactic acidosis secondary to metformin 4. Pyuria, rule out UTI 5. Type 2 diabetes maintained on metformin and crit Jhoanaer as outpatient 6. Hyperkalemia associated with acute kidney injury and severe metabolic acidosis Plan: Decrease bicarb drip Follow-up on labs from today Repeat hemodialysis today I will DC the bicarb drip if acidosis has resolved. Hopefully patient will not need further hemodialysis. Continue off of metformin
[2022-05-29 09:03] LABS: Calcium 7.4 mg/dL (8.4-10.2); Potassium 3.8 mmol/L (3.5-5.1)
[2022-05-29] MEDS: AZELASTINE 137MCG/SPRAY NASAL SCH ×2 (09:19→21:28)
[2022-05-29] MEDS: ARIPiprazole 2 MG TAB PO SCH (09:19)
[2022-05-29] MEDS: ASPIRIN 81 MG PO SCH (09:19)
[2022-05-29] MEDS: DULoxetine HCL 60 MG CAPSULE.DR PO SCH (09:19)
--- NOTE | 2022-05-29 09:48 | CDI ---
Documentation Clarification Form Date: 05/29/2022 09:38:18 AM From: Malena Mcrae CCS, CCDS Admit Date: 05/27/2022 11:19:00 AM Patient Name: Amee Rosenberg Visit Number: [id number] Discharge Date: 06/02/2022 ATTENTION: The Clinical Documentation Specialists (CDI) and [facility] Coding Staff appreciate your assistance in clarifying documentation. Please respond to the clarification below the line at the bottom and electronically sign. The CDI & [facility] Coding staff will review the response and follow-up if needed. Please note: Queries are made part of the Legal Health Record. If you have any questions, please contact the author of this message via ITS. Dr. Kervin England Hypernatremia is documented in the 05/28 Attending Physician Progress Note. Charted Lab Values: Na 05/27: 137 Na 05/28: 139 Na 05/29: 135 Additional clarification is requested. History/Risk Factors per the 05/27 H/P: Patient is on multiple medications that can affect the kidney including ALETA inhibitor, Metformin and NSAIDs. Recent UTI on antibiotics. Hypertension, Hyperlipidemia, DM II, IBS, Fibromyalgia, Osteoarthritis, Asthma and Sleep Apnea. CKD is documented by the Vascular surgeon. Home meds: Bentyl, Zocor, Glucophage, Tradjenta, Micardis, Abilify, Astepro, Flexeril, Cymbalta, Vit D2, Feosol, Fexofenadine, Folic Acid, Mobic, Lopressor, Singulair, Naltrexone, Omeprazole, Actos, Ambien, Ecotrin. Clinical Indicators: Presented to the ED on 05/27 with Nausea, Vomiting and inability to urinate. UTI one month ago, not currently on antibiotics. Admit with Nausea & vomiting, Dehydration, JUAN RAMON, Lactic Acidosis, Hypoglycemia. Treatment 05/27: IV Na Chl 2,000 mls @ 999 mls/hr q2H, IV Zofran 4 mg x1, IV Dextrose 25 ml x1, IV Zofran 4 mg q8H/prn, IV Na Chl 1,000 mls @ 75 mls/hr q13H, IV Dextrose/Water w/Na Bicarb 1,150 mls @ 60 mls/hr q19H, IV Rocephin 50 mls @ 100 mls/hr x1. Can you please clarify the following: [ ] Hypernatremia [ ] Hyponatremia [ ] Other, please specify [ ] Unable to determine (Template Last Revised: December 2020) mild transient hyponatremia, resolved upon discharge MTDD
--- NOTE | 2022-05-29 09:58 | CDI ---
Documentation Clarification Form Date: 05/29/2022 09:52:00 AM From: Malena Mcrae CCS, CCDS Admit Date: 05/27/2022 11:19:00 AM Patient Name: Amee Rosenberg Visit Number: [id number] Discharge Date: ATTENTION: The Clinical Documentation Specialists (CDI) and [facility] Coding Staff appreciate your assistance in clarifying documentation. Please respond to the clarification below the line at the bottom and electronically sign. The CDI & [facility] Coding staff will review the response and follow-up if needed. Please note: Queries are made part of the Legal Health Record. If you have any questions, please contact the author of this message via ITS. Dr. Galeana Sheet The patient presented with the following clinical indicators. Additional clarification regarding the etiology/cause of the clinical indicators is requested. History/Risk Factors per the 05/27 H/P: Patient is on multiple medications that can affect the kidney including ALETA inhibitor, Metformin and NSAIDs. Recent UTI on antibiotics. Hypertension, Hyperlipidemia, DM II, IBS, Fibromyalgia, Osteoarthritis, Asthma and Sleep Apnea. CKD is documented by the Vascular surgeon. Home meds: Bentyl, Zocor, Glucophage, Tradjenta, Micardis, Abilify, Astepro, Flexeril, Cymbalta, Vit D2, Feosol, Fexofenadine, Folic Acid, Mobic, Lopressor, Singulair, Naltrexone, Omeprazole, Actos, Ambien, Ecotrin. Clinical Indicators: Presented to the ED on 05/27 with Nausea, Vomiting and inability to urinate. UTI one month ago, not currently on antibiotics. Admit with Nausea & vomiting, Dehydration, JUAN RAMON, Lactic Acidosis, Hypoglycemia. 05/27 VS: T 97.9, 97, 96.3; P 101, 99, 85; R 18, 16; BP 135/82, 161/94; PO 100 RA 05/27 LAB: WBC 13.6, neutrophils 9.7; Chl 95, CO2 11, BUN 21, Creatinine 6.04, Glucose 70, Lactic Acid 9.1, 8.1, 9.8, 10.9. UA: Light yellow, cloudy, 1+ Protein, Trace Glucose, 1+ Ketones, Small Blood, Small Esterase, WBC 11, Epith Cells 24. 8/9 KUB: No free air or bowel obstruction, mild-moderate stool burden. 05/27 Renal US: No hydronephrosis, Echogenic renal cortex suggests underlying chronic medical renal disease. Treatment 05/27: IV Na Chl 2,000 mls @ 999 mls/hr q2H, IV Zofran 4 mg x1, IV Dextrose 25 ml x1, IV Zofran 4 mg q8H/prn, IV Na Chl 1,000 mls @ 75 mls/hr q13H, IV Dextrose/Water w/Na Bicarb 1,150 mls @ 60 mls/hr q19H, IV Rocephin 50 mls @ 100 mls/hr x1. In your professional opinion, please clarify if these findings signify one of the following conditions: [ ] Sepsis POA [ ] Sepsis, Not POA [ ] Sepsis ruled out [ ] Severe Sepsis with organ failure [ ] Other, please specify [ ] Unable to determine (Template Last Reviewed: November 2020) no sepsis MTDD
[2022-05-29] MEDS: METOPROLOL TARTRATE 25 MG TAB PO SCH (10:46)
[2022-05-29 11:45] LABS: Glucose,Whole Blood 115 mg/dL (70-110)
--- NOTE | 2022-05-29 16:12 | P.PN ---
Subjective Patient with [id number] female came in with compensative and tractable nausea vomiting has been going on for few days and patient is unable to urinate. Patient is found to have serum creatinine of 6. Patient BUN is only 22 patient probably has acute to be necrosis patient is also on multiple medications that can affect the kidney including ALETA inhibitor metformin and the and this aids. Nephrology was consulted and also the kidneys being obtain patient was on antibiotics for UTI recently. Patient to his creatinine was within normal li mits. 05/28/2022 Patient evaluated today resting in bed. Continues with ongoing nausea and had an episode of emesis today most likely from acute renal failure. Patient states she was recently treated outpatient for acute UTI a few months ago. Med review shows patient was treated for UTI with cipro for 10 days and also keflex was sent 2 days prior in February of this year. with Patient does have indwelling catheter in place and urine output in the last 24 hours -1.370 Liters. Nephrology is following and patient is recommend for renal replacement therapy and vascular services has been placed on consultation for temporary dialysis access. Labs today showing white count stable at 13.8, sodium 139, potassium 5.6, CO2 6, chloride 95. Creatinine is increased up to 6.71 today. Lactic acid continues to remain elevated at 15.1, which patient has nausea vomiting over the last few days can be a result of dehydration, also possible metformin inducted lactic acidosis. Procalcitonin level has been ordered and also blood culture. Urine culture is currently pending preliminary negative so far and patient is continued on empiric antibiotic coverage with IV ceftriaxone. Patient is also on bicarb gtt. Antiemetics with zofran, tigan. Patient remains afebrile, blood pressure 136/76 and 100% on room air. Subjective: Resuming the care of the patient today 05/29/2022 Patient looks comfortable today, her nausea vomiting and diarrhea she came in with. Today. Last time she vomited was yesterday, no bowel movement for the last few days. Patient still has low appetite. She denies any abdominal pain. She has a Villavicencio catheter and she is undergoing hemodialysis today. 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 [id number] SIDNEY with Sodium Bicarb (1 Meq/ml) 150 ml Rx#:[id number] Oral 0 Hemodialysis 700 Output: Urine 2800 900 450 Uretheral (Villavicencio) 1050 900 Hemodialysis 700 Other: Voiding Method Indwelling Catheter Indwelling Catheter Indwelling Catheter - Exam GENERAL: The patient is alert and oriented x3, not in any acute distress. Well developed, well nourished. HEENT: Pupils are round and equally reacting to light. EOMI. No scleral icterus. No conjunctival pallor. Normocephalic, atraumatic. No pharyngeal erythema. No thyromegaly. CARDIOVASCULAR: S1 and S2 present. No murmurs, rubs, or gallops. PULMONARY: Chest is clear to auscultation, no wheezing or crackles. ABDOMEN: Soft, nontender, nondistended, normoactive bowel sounds. No palpable organomegaly. MUSCULOSKELETAL: No joint swelling or deformity. EXTREMITIES: No cyanosis, clubbing, or pedal edema. NEUROLOGICAL: Gross neurological examination did not reveal any focal deficits. SKIN: No rashes. no petechiae. - Labs CBC & Chem 7: 05/29/22 07:40 05/29/22 07:40 Labs: Abnormal Lab Results - Last 24 Hours (Table) 05/28/22 05/28/22 05/28/22 Range/Units 12:00 13:15 16:37 RBC (3.80-5.40) m/uL Hgb (11.4-16.0) gm/dL Hct (34.0-46.0) % Sodium (137-145) mmol/L Chloride (98-107) mmol/L Carbon Dioxide (22-30) mmol/L BUN (7-17) mg/dL Creatinine (0.52-1.04) mg/dL Glucose (74-99) mg/dL POC Glucose (mg/dL) 118 H 112 H (70-110) mg/dL Plasma Lactic Acid Maury 15.1 H* (0.7-2.0) mmol/L Calcium (8.4-10.2) mg/dL Procalcitonin (0.02-0.09) ng/mL 05/29/22 05/29/22 05/29/22 Range/Units 02:37 07:40 07:40 RBC 3.45 L (3.80-5.40) m/uL Hgb 10.9 L (11.4-16.0) gm/dL Hct 32.2 L (34.0-46.0) % Sodium (137-145) mmol/L Chloride (98-107) mmol/L Carbon Dioxide (22-30) mmol/L BUN (7-17) mg/dL Creatinine (0.52-1.04) mg/dL Glucose (74-99) mg/dL POC Glucose (mg/dL) 123 H (70-110) mg/dL Plasma Lactic Acid Maury (0.7-2.0) mmol/L Calcium (8.4-10.2) mg/dL Procalcitonin 0.29 H (0.02-0.09) ng/mL 05/29/22 Range/Units 07:40 RBC (3.80-5.40) m/uL Hgb (11.4-16.0) gm/dL Hct (34.0-46.0) % Sodium 135 L (137-145) mmol/L Chloride 89 L (98-107) mmol/L Carbon Dioxide 34 H (22-30) mmol/L BUN 25 H (7-17) mg/dL Creatinine 3.56 H (0.52-1.04) mg/dL Glucose 118 H (74-99) mg/dL POC Glucose (mg/dL) (70-110) mg/dL Plasma Lactic Acid Maury (0.7-2.0) mmol/L Calcium 7.4 L (8.4-10.2) mg/dL Procalcitonin (0.02-0.09) ng/mL Microbiology - Last 24 Hours (Table) 08/09/22 10:11 Urine Culture - Final Urine,Clean Catch Assessment and Plan Assessment: -Acute renal failure most likely acute tubular necrosis multifactorial patient was on angiotensin receptor quirino at home as well as NSAID daily. No evidence for obstruction. -Nausea vomiting and diarrhea, improving could be viral versus reactive gastroenteritis -Severe metabolic acidosis from lactic acidosis as well as acute renal failure, status post hemodialysis -Suspected acute urinary tract infection -Hypernatremia secondary to above -Lactic acidosis multifactorial component of metformin induced also with ongoing nausea vomiting -type 2 diabetes mellitus -Hyperlipidemia -Hypertension, losartan currently on hold -Sleep apnea uses CPAP machine at home -depression Plan: This is a pleasant 57 years old female with a KI, gastroenteritis Continue with hemodialysis per nephrology team Continue with bicarb drip. 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 Keep holding diabetes medication Actos, trajenta, metformin 1000 mg. Currently glucose controlled on diet only. Continue with ceftriaxone. Urine culture negative. Repeat urine analysis Continue with Villavicencio catheter Labs and medication were reviewed.. Continue same treatment. Continue with symptomatic treatment. Resume home medication. Monitor lytes and vitals. DVT and GI prophylaxis. Further recommendations as per clinical course of the patient DVT prophylaxis: Subcutaneous heparin GI Prophylaxis: Pepcid PT/OT: Pending Prognosis is guarded
[2022-05-29 16:42] LABS: Glucose,Whole Blood 117 mg/dL (70-110)
[2022-05-29 17:10] LABS: Appearance,Urine Cloudy (Clear); Bacteria,Urine Rare /hpf; Bilirubin,Urine Negative (Negative); Blood,Urine Moderate (Negative); Color,Urine Light Yellow; Glucose,Urine (UA) 3+ (Negative); Ketones,Urine Negative (Negative); Leukocyte Esterase,Urine Large (Negative); Mucus,Urine Rare /hpf; Nitrite,Urine Negative (Negative); PH, Urine 8.5 (5.0-8.0); Protein,Urine 1+ (Negative); RBC,Urine 23 /hpf (0-5); Squamous Epithelial Cell,Urine 1 /hpf (0-4); Urobilinogen,Urine <2.0 mg/dL (<2.0); WBC,Urine >182 /hpf (0-5)
[2022-05-29 20:29] LABS: Glucose,Whole Blood 146 mg/dL (70-110)
[2022-05-29] MEDS ORDERED: FAMOTIDINE 20 MG/2 ML VIAL IV SCH (21:00)
[2022-05-29] MEDS: HEPARIN SODIUM,PORCINE/PF 5,000 UNIT/0.5 ML SYRINGE SQ SCH (21:27)
[2022-05-29] MEDS: ATORVASTATIN 20 MG TAB PO SCH (21:27)
[2022-05-29] MEDS: FAMOTIDINE 20 MG/2 ML VIAL IV SCH (21:31)
[2022-05-30] MEDS: DEXTROSE 5% IN WATER 1,000 ML with SODIUM BICARB (1 MEQ/ML) 150 ML IV SCH (05:55)
[2022-05-30] MEDS: ARIPiprazole 2 MG TAB PO SCH (07:57)
[2022-05-30] MEDS: DULoxetine HCL 60 MG CAPSULE.DR PO SCH (07:57)
[2022-05-30] MEDS: AZELASTINE 137MCG/SPRAY NASAL SCH ×2 (07:58→20:25)
[2022-05-30] MEDS: ASPIRIN 81 MG PO SCH (07:58)
[2022-05-30] MEDS: HEPARIN SODIUM,PORCINE/PF 5,000 UNIT/0.5 ML SYRINGE SQ SCH ×2 (07:59→19:49)
[2022-05-30] MEDS: FAMOTIDINE 20 MG/2 ML VIAL IV SCH (07:59)
[2022-05-30 08:32] LABS: Basophils % (A) 0 %; Eosinophils # (A) 0.1 k/uL (0-0.7); Eosinophils % (A) 2 %; HCT 32.1 % (34.0-46.0); HGB 10.8 gm/dL (11.4-16.0); Lymphocytes # (A) 1.7 k/uL (1.0-4.8); Lymphocytes % (A) 31 %; MCH 31.9 pg (25.0-35.0); MCHC 33.6 g/dL (31.0-37.0); Mean Platelet Volume 8.2; Monocytes # (A) 0.4 k/uL (0-1.0); Monocytes % (A) 7 %; Neutrophils # (A) 3.1 k/uL (1.3-7.7); Neutrophils % (A) 58 %; Platelet Count 192 k/uL (150-450); RBC 3.38 m/uL (3.80-5.40); RDW 14.1 % (11.5-15.5); WBC 5.3 k/uL (3.8-10.6)
[2022-05-30 08:48] LABS: Calcium 7.5 mg/dL (8.4-10.2)
[2022-05-30 08:49] LABS: Magnesium 1.4 mg/dL (1.6-2.3); Potassium 3.2 mmol/L (3.5-5.1)
[2022-05-30] MEDS ORDERED: POTASSIUM CHLORIDE ER 20 MEQ TAB.ER PO STA (09:14)
[2022-05-30] MEDS ORDERED: Potassium Replacement Protocol 1 EACH MISC MISCELLANE PRN (09:14)
[2022-05-30] MEDS: METOPROLOL TARTRATE 25 MG TAB PO SCH (10:58)
[2022-05-30 12:02] VITALS: BMI 28.4
[2022-05-30 12:03] LABS: Glucose,Whole Blood 137 mg/dL (70-110)
--- NOTE | 2022-05-30 15:01 | P.PN ---
Subjective Progress Note Date: 05/30/22 Follow-up for acute kidney injury on dialysis. Good urine output. No nausea vomiting diarrhea. Objective - Vital Signs Vital signs: Vital Signs Temp 97.5 F L 05/30/22 11:23 Pulse 81 05/30/22 11:23 Resp 16 05/30/22 11:23 BP 103/61 05/30/22 11:23 Pulse Ox 97 05/30/22 11:23 FiO2 Intake & Output 05/29/22 05/30/22 05/30/22 18:59 06:59 18:59 Intake Total 300 480 280 Output Total 1200 980 400 Balance -900 -500 -120 Weight 72.8 kg 72.8 kg Intake: Intake, IV Titration 480 Amount Dextrose 5% in Water 1, 480 000 ml @ 60 mls/hr IV . [id number] SIDNEY with Sodium Bicarb (1 Meq/ml) 150 ml Rx#:[id number] Oral 280 Hemodialysis 300 Output: Urine 700 980 400 Uretheral (Villavicencio) 500 Hemodialysis 500 Other: Voiding Method Indwelling Catheter Indwelling Catheter Indwelling Catheter - Exam No acute distress S1-S2 heard Lungs clear No edema Villavicencio catheter - Labs CBC & Chem 7: 05/30/22 07:48 05/30/22 07:48 Labs: Abnormal Lab Results - Last 24 Hours (Table) 05/29/22 05/29/22 05/29/22 Range/Units 16:40 20:28 Unknown RBC (3.80-5.40) m/uL Hgb (11.4-16.0) gm/dL Hct (34.0-46.0) % Sodium (137-145) mmol/L Potassium (3.5-5.1) mmol/L Chloride (98-107) mmol/L Carbon Dioxide (22-30) mmol/L Creatinine (0.52-1.04) mg/dL Glucose (74-99) mg/dL POC Glucose (mg/dL) 117 H 146 H (70-110) mg/dL Calcium (8.4-10.2) mg/dL Magnesium (1.6-2.3) mg/dL Urine Appearance Cloudy H (Clear) Urine pH 8.5 H (5.0-8.0) Urine Protein 1+ H (Negative) Urine Glucose (UA) 3+ H (Negative) Urine Blood Moderate H (Negative) Ur Leukocyte Esterase Large H (Negative) Urine RBC 23 H (0-5) /hpf Urine WBC >182 H (0-5) /hpf Urine Bacteria Rare H (None) /hpf Urine Mucus Rare H (None) /hpf 05/30/22 05/30/22 05/30/22 Range/Units 07:48 07:48 11:57 RBC 3.38 L (3.80-5.40) m/uL Hgb 10.8 L (11.4-16.0) gm/dL Hct 32.1 L (34.0-46.0) % Sodium 133 L (137-145) mmol/L Potassium 3.2 L (3.5-5.1) mmol/L Chloride 95 L (98-107) mmol/L Carbon Dioxide 35 H (22-30) mmol/L Creatinine 2.19 H (0.52-1.04) mg/dL Glucose 146 H (74-99) mg/dL POC Glucose (mg/dL) 137 H (70-110) mg/dL Calcium 7.5 L (8.4-10.2) mg/dL Magnesium 1.4 L (1.6-2.3) mg/dL Urine Appearance (Clear) Urine pH (5.0-8.0) Urine Protein (Negative) Urine Glucose (UA) (Negative) Urine Blood (Negative) Ur Leukocyte Esterase (Negative) Urine RBC (0-5) /hpf Urine WBC (0-5) /hpf Urine Bacteria (None) /hpf Urine Mucus (None) /hpf Microbiology - Last 24 Hours (Table) 05/29/22 Unknown Urine Culture - Preliminary Urine,Voided Assessment and Plan Assessment: #1 acute kidney injury multifactorial ATN currently on dialysis. -. Baseline creatinine 1.0 MG per DL. #2 anion gap metabolic acidosis secondary to lactic acidosis. #3 complicated UTI #4 diabetes #5 hyperkalemia resolved. Plan: #1 renal function improving, hold dialysis today. #2 discontinue sodium bicarb drip #3 remove Villavicencio catheter #4 daily renal labs. If renal function improving discontinue Pierce catheter #5 avoid nephrotoxic agents and hypotensive episodes.
[2022-05-30 16:44] LABS: Glucose,Whole Blood 159 mg/dL (70-110)
--- NOTE | 2022-05-30 17:52 | P.PN ---
Subjective Patient with [id number]-[id number] female came in with compensative and tractable nausea vomiting has been going on for few days and patient is unable to urinate. Patient is found to have serum creatinine of 6. Patient BUN is only 22 patient probably has acute to be necrosis patient is also on multiple medications that can affect the kidney including ALETA inhibitor metformin and the and this aids. Nephrology was consulted and also the kidneys being obtain patient was on antibiotics for UTI recently. Patient to his creatinine was within normal li mits. 05/28/2022 Patient evaluated today resting in bed. Continues with ongoing nausea and had an episode of emesis today most likely from acute renal failure. Patient states she was recently treated outpatient for acute UTI a few months ago. Med review shows patient was treated for UTI with cipro for 10 days and also keflex was sent 2 days prior in February of this year. with Patient does have indwelling catheter in place and urine output in the last 24 hours -1.370 Liters. Nephrology is following and patient is recommend for renal replacement therapy and vascular services has been placed on consultation for temporary dialysis access. Labs today showing white count stable at 13.8, sodium 139, potassium 5.6, CO2 6, chloride 95. Creatinine is increased up to 6.71 today. Lactic acid continues to remain elevated at 15.1, which patient has nausea vomiting over the last few days can be a result of dehydration, also possible metformin inducted lactic acidosis. Procalcitonin level has been ordered and also blood culture. Urine culture is currently pending preliminary negative so far and patient is continued on empiric antibiotic coverage with IV ceftriaxone. Patient is also on bicarb gtt. Antiemetics with zofran, tigan. Patient remains afebrile, blood pressure 136/76 and 100% on room air. Subjective: Resuming the care of the patient today 05/29/2022 Patient looks comfortable today, her nausea vomiting and diarrhea she came in with. Today. Last time she vomited was yesterday, no bowel movement for the last few days. Patient still has low appetite. She denies any abdominal pain. She has a Villavicencio catheter and she is undergoing hemodialysis today. Blood pressure is 92/54 Patient continue on ceftriaxone, urine culture negative, repeat urine analysis Continue with bicarb drip her metal bonder Continue with symptomatic treatment Portcalcitonin is elevated 0.29 05/30/2022 Patient acute kidney injury is improving and clinically is doing well. She is almost as symptomatic however she is complaining of from poor appetite and once she has difficulty swallowing and feels a lump in her throat. She still has right femoral/inguinal dialysis catheter however hemodialysis was held today because her creatinine is improving down to 2.1. Other labs are stable, hemoglobin 10.5. Hemodynamically stable. She remains also on ceftriaxone and repeat urine culture is pending. First urine culture is negative. Patient informed that we stopped her diabetes medication including metformin [place] Actos and trajenta and she agrees as her sugars controlled now and states she has a glucometer, instructions provided. Also informed to avoid NSAIDs which are significantly contraindicated and ho lding her telmisartan she verbalized understanding. Bicarb drip was stopped. Villavicencio catheter to be discontinued as per metal bonder recommendation Objective - Vital Signs Vital signs: Vital Signs Temp 97.2 F L 05/30/22 08:00 Pulse 80 05/30/22 08:00 Resp 17 05/30/22 08:00 BP 100/57 05/30/22 08:00 Pulse Ox 96 05/30/22 08:00 FiO2 Intake & Output 05/29/22 05/30/22 05/30/22 18:59 06:59 18:59 Intake Total 300 480 180 Output Total 1200 980 Balance -900 -500 180 Weight 72.8 kg Intake: Intake, IV Titration 480 Amount Dextrose 5% in Water 1, 480 000 ml @ 60 mls/hr IV . [id number] SIDNEY with Sodium Bicarb (1 Meq/ml) 150 ml Rx#:[id number] Oral 180 Hemodialysis 300 Output: Urine 700 980 Uretheral (Villavicencio) 500 Hemodialysis 500 Other: Voiding Method Indwelling Catheter Indwelling Catheter Indwelling Catheter - Exam GENERAL: The patient is alert and oriented x3, not in any acute distress. Well developed, well nourished. HEENT: Pupils are round and equally reacting to light. EOMI. No scleral icterus. No conjunctival pallor. Normocephalic, atraumatic. No pharyngeal erythema. No thyromegaly. CARDIOVASCULAR: S1 and S2 present. No murmurs, rubs, or gallops. PULMONARY: Chest is clear to auscultation, no wheezing or crackles. ABDOMEN: Soft, nontender, nondistended, normoactive bowel sounds. No palpable organomegaly. MUSCULOSKELETAL: No joint swelling or deformity. EXTREMITIES: No cyanosis, clubbing, or pedal edema. NEUROLOGICAL: Gross neurological examination did not reveal any focal deficits. SKIN: No rashes. no petechiae. - Labs CBC & Chem 7: 05/30/22 07:48 05/30/22 07:48 Labs: Abnormal Lab Results - Last 24 Hours (Table) 05/29/22 05/29/22 05/29/22 Range/Units 07:40 11:43 16:40 RBC (3.80-5.40) m/uL Hgb (11.4-16.0) gm/dL Hct (34.0-46.0) % Sodium (137-145) mmol/L Potassium (3.5-5.1) mmol/L Chloride (98-107) mmol/L Carbon Dioxide (22-30) mmol/L Creatinine (0.52-1.04) mg/dL Glucose (74-99) mg/dL POC Glucose (mg/dL) 115 H 117 H (70-110) mg/dL Calcium (8.4-10.2) mg/dL Magnesium (1.6-2.3) mg/dL Procalcitonin 0.29 H (0.02-0.09) ng/mL Urine Appearance (Clear) Urine pH (5.0-8.0) Urine Protein (Negative) Urine Glucose (UA) (Negative) Urine Blood (Negative) Ur Leukocyte Esterase (Negative) Urine RBC (0-5) /hpf Urine WBC (0-5) /hpf Urine Bacteria (None) /hpf Urine Mucus (None) /hpf 05/29/22 05/29/22 05/30/22 Range/Units 20:28 Unknown 07:48 RBC 3.38 L (3.80-5.40) m/uL Hgb 10.8 L (11.4-16.0) gm/dL Hct 32.1 L (34.0-46.0) % Sodium (137-145) mmol/L Potassium (3.5-5.1) mmol/L Chloride (98-107) mmol/L Carbon Dioxide (22-30) mmol/L Creatinine (0.52-1.04) mg/dL Glucose (74-99) mg/dL POC Glucose (mg/dL) 146 H (70-110) mg/dL Calcium (8.4-10.2) mg/dL Magnesium (1.6-2.3) mg/dL Procalcitonin (0.02-0.09) ng/mL Urine Appearance Cloudy H (Clear) Urine pH 8.5 H (5.0-8.0) Urine Protein 1+ H (Negative) Urine Glucose (UA) 3+ H (Negative) Urine Blood Moderate H (Negative) Ur Leukocyte Esterase Large H (Negative) Urine RBC 23 H (0-5) /hpf Urine WBC >182 H (0-5) /hpf Urine Bacteria Rare H (None) /hpf Urine Mucus Rare H (None) /hpf 05/30/22 Range/Units 07:48 RBC (3.80-5.40) m/uL Hgb (11.4-16.0) gm/dL Hct (34.0-46.0) % Sodium 133 L (137-145) mmol/L Potassium 3.2 L (3.5-5.1) mmol/L Chloride 95 L (98-107) mmol/L Carbon Dioxide 35 H (22-30) mmol/L Creatinine 2.19 H (0.52-1.04) mg/dL Glucose 146 H (74-99) mg/dL POC Glucose (mg/dL) (70-110) mg/dL Calcium 7.5 L (8.4-10.2) mg/dL Magnesium 1.4 L (1.6-2.3) mg/dL Procalcitonin (0.02-0.09) ng/mL Urine Appearance (Clear) Urine pH (5.0-8.0) Urine Protein (Negative) Urine Glucose (UA) (Negative) Urine Blood (Negative) Ur Leukocyte Esterase (Negative) Urine RBC (0-5) /hpf Urine WBC (0-5) /hpf Urine Bacteria (None) /hpf Urine Mucus (None) /hpf Microbiology - Last 24 Hours (Table) 05/29/22 Unknown Urine Culture - Preliminary Urine,Voided Assessment and Plan Assessment: -Acute renal failure most likely acute tubular necrosis multifactorial patient was on angiotensin receptor quirino at home as well as NSAID daily. No evidence for obstruction. -Swallowing difficulty -Nausea vomiting and diarrhea, improving could be viral versus reactive ga stroenteritis. Results -Severe metabolic acidosis from lactic acidosis as well as acute renal failure, status post hemodialysis. Last hemodialysis was 05/29 -Suspected acute urinary tract infection -Hypernatremia secondary to above -Lactic acidosis multifactorial component of metformin induced also with ongoing nausea vomiting -type 2 diabetes mellitus -Hyperlipidemia -Hypertension, losartan currently on hold -Sleep apnea uses CPAP machine at home -depression Plan: This is a pleasant 57 years old female with a KI, gastroenteritis Hold hemodialysis per nephrology team Discontinue bicarb drip. 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 Keep holding diabetes medication Actos, trajenta, metformin 1000 mg. Currently glucose controlled on diet only. Continue with ceftriaxone. Urine culture negative. Repeat urine culture is pending Continue with Villavicencio catheter, unless discontinued by metal bonder and check urine scan Labs and medication were reviewed.. Continue same treatment. Continue with symptomatic treatment. Resume home medication. Monitor lytes and vitals. DVT and GI prophylaxis. Further recommendations as per clinical course of the patient DVT prophylaxis: Subcutaneous heparin GI Prophylaxis: Pepcid PT/OT: Home
[2022-05-30] MEDS: ATORVASTATIN 20 MG TAB PO SCH (19:49)
[2022-05-30 20:36] LABS: Glucose,Whole Blood 126 mg/dL (70-110)
[2022-05-31 07:09] LABS: Glucose,Whole Blood 150 mg/dL (70-110)
[2022-05-31] MEDS: ARIPiprazole 2 MG TAB PO SCH (08:46)
[2022-05-31] MEDS: DULoxetine HCL 60 MG CAPSULE.DR PO SCH (08:47)
[2022-05-31] MEDS: FAMOTIDINE 20 MG/2 ML VIAL IV SCH (08:47)
[2022-05-31] MEDS: METOPROLOL TARTRATE 25 MG TAB PO SCH (08:47)
[2022-05-31] MEDS: ASPIRIN 81 MG PO SCH (08:47)
[2022-05-31] MEDS: HEPARIN SODIUM,PORCINE/PF 5,000 UNIT/0.5 ML SYRINGE SQ SCH ×2 (08:47→19:38)
[2022-05-31] MEDS: AZELASTINE 137MCG/SPRAY NASAL SCH ×2 (08:47→19:38)
[2022-05-31 09:27] LABS: Calcium 7.8 mg/dL (8.4-10.2)
[2022-05-31 09:29] LABS: Potassium 2.7 mmol/L (3.5-5.1)
[2022-05-31] MEDS: POTASSIUM CHLORIDE ER 20 MEQ TAB.ER PO SCH ×3 (09:45→11:48)
[2022-05-31 11:36] LABS: Glucose,Whole Blood 130 mg/dL (70-110)
[2022-05-31] MEDS ORDERED: POTASSIUM CHLORIDE ER 20 MEQ TAB.ER PO STA (12:25)
--- NOTE | 2022-05-31 12:57 | P.PN ---
Subjective Patient with [id number] female came in with compensative and tractable nausea vomiting has been going on for few days and patient is unable to urinate. Patient is found to have serum creatinine of 6. Patient BUN is only 22 patient probably has acute to be necrosis patient is also on multiple medications that can affect the kidney including ALETA inhibitor metformin and the and this aids. Nephrology was consulted and also the kidneys being obtain patient was on antibiotics for UTI recently. Patient to his creatinine was within normal li mits. 05/28/2022 Patient evaluated today resting in bed. Continues with ongoing nausea and had an episode of emesis today most likely from acute renal failure. Patient states she was recently treated outpatient for acute UTI a few months ago. Med review shows patient was treated for UTI with cipro for 10 days and also keflex was sent 2 days prior in February of this year. with Patient does have indwelling catheter in place and urine output in the last 24 hours -1.370 Liters. Nephrology is following and patient is recommend for renal replacement therapy and vascular services has been placed on consultation for temporary dialysis access. Labs today showing white count stable at 13.8, sodium 139, potassium 5.6, CO2 6, chloride 95. Creatinine is increased up to 6.71 today. Lactic acid continues to remain elevated at 15.1, which patient has nausea vomiting over the last few days can be a result of dehydration, also possible metformin inducted lactic acidosis. Procalcitonin level has been ordered and also blood culture. Urine culture is currently pending preliminary negative so far and patient is continued on empiric antibiotic coverage with IV ceftriaxone. Patient is also on bicarb gtt. Antiemetics with zofran, tigan. Patient remains afebrile, blood pressure 136/76 and 100% on room air. Subjective: Resuming the care of the patient today 05/29/2022 Patient looks comfortable today, her nausea vomiting and diarrhea she came in with. Today. Last time she vomited was yesterday, no bowel movement for the last few days. Patient still has low appetite. She denies any abdominal pain. She has a Villavicencio catheter and she is undergoing hemodialysis today. Blood pressure is 92/54 Patient continue on ceftriaxone, urine culture negative, repeat urine analysis Continue with bicarb drip her legal researcher Continue with symptomatic treatment Portcalcitonin is elevated 0.29 05/30/2022 Patient acute kidney injury is improving and clinically is doing well. She is almost as symptomatic however she is complaining of from poor appetite and once she has difficulty swallowing and feels a lump in her throat. She still has right femoral/inguinal dialysis catheter however hemodialysis was held today because her creatinine is improving down to 2.1. Other labs are stable, hemoglobin 10.5. Hemodynamically stable. She remains also on ceftriaxone and repeat urine culture is pending. First urine culture is negative. Patient informed that we stopped her diabetes medication including metformin Marbella Actos and trajenta and she agrees as her sugars controlled now and states she has a glucometer, instructions provided. Also informed to avoid NSAIDs which are significantly contraindicated and ho lding her telmisartan she verbalized understanding. Bicarb drip was stopped. Villavicencio catheter to be discontinued as per legal researcher recommendation 05/31/2022 Patient creatinine improving down to 2.0, glucose 2.1 yesterday, hemodialysis was held yesterday, we will follow up with nephrology team whether she will receive another hemodialysis today or not. She still has right femoral In a Place. Patient looks comfortable awake and alert, her main complaint today is feeling something stuck in her throat when she tries swallowing, months exam looks normal with no thrush or other abnormality. No swelling and breathing is fine. We will order for swallow evaluation Repeat urine culture is negative 2. Patient finished her therapy for UTI, this continued ceftriaxone for now. Patient has poor appetite but picking up and she finished 50% of her breakfast this morning. Villavicencio catheter in place and patient might benefit from follow-up as an outpatient Stress for the patient the importance of discontinuing NSAIDs. Also, the patient was still holding her diabetes medication and she agrees. Glucose controlled Villavicencio catheter was discontinued yesterday by legal researcher, bladder scan less than 51 I discussed with bed side nurse this morning Objective - Vital Signs Vital signs: Vital Signs Temp 98 F 05/31/22 08:47 Pulse 61 05/31/22 08:47 Resp 16 05/31/22 08:47 BP 117/67 05/31/22 08:47 Pulse Ox 97 05/31/22 08:47 FiO2 Intake & Output 05/30/22 05/31/22 05/31/22 18:59 06:59 18:59 Intake Total 460 180 Output Total 850 1579 Balance -390 -3902 180 Weight 72.8 kg 72.3 kg Intake: Oral 460 180 Output: Urine 850 1500 Post Void Residual 79 Other: Voiding Method Indwelling Catheter Toilet # Voids 1 - Exam GENERAL: The patient is alert and oriented x3, not in any acute distress. Well developed, well nourished. HEENT: Pupils are round and equally reacting to light. EOMI. No scleral icterus. No conjunctival pallor. Normocephalic, atraumatic. No pharyngeal erythema. No thyromegaly. CARDIOVASCULAR: S1 and S2 present. No murmurs, rubs, or gallops. PULMONARY: Chest is clear to auscultation, no wheezing or crackles. ABDOMEN: Soft, nontender, nondistended, normoactive bowel sounds. No palpable organomegaly. MUSCULOSKELETAL: No joint swelling or deformity. EXTREMITIES: No cyanosis, clubbing, or pedal edema. NEUROLOGICAL: Gross neurological examination did not reveal any focal deficits. SKIN: No rashes. no petechiae. - Labs CBC & Chem 7: 05/30/22 07:48 05/31/22 08:53 Labs: Abnormal Lab Results - Last 24 Hours (Table) 05/30/22 05/30/22 05/30/22 Range/Units 11:57 16:38 20:34 Potassium (3.5-5.1) mmol/L Chloride (98-107) mmol/L Carbon Dioxide (22-30) mmol/L Creatinine (0.52-1.04) mg/dL Glucose (74-99) mg/dL POC Glucose (mg/dL) 137 H 159 H 126 H (70-110) mg/dL Calcium (8.4-10.2) mg/dL 05/31/22 05/31/22 05/31/22 Range/Units 07:05 08:53 11:35 Potassium 2.7 L* (3.5-5.1) mmol/L Chloride 96 L (98-107) mmol/L Carbon Dioxide 35 H (22-30) mmol/L Creatinine 2.06 H (0.52-1.04) mg/dL Glucose 139 H (74-99) mg/dL POC Glucose (mg/dL) 150 H 130 H (70-110) mg/dL Calcium 7.8 L (8.4-10.2) mg/dL Microbiology - Last 24 Hours (Table) 05/29/22 Unknown Urine Culture - Final Urine,Voided Assessment and Plan Assessment: -Acute renal failure most likely acute tubular necrosis multifactorial patient was on angiotensin receptor quirino at home as well as NSAID daily. No evidence for obstruction. -Swallowing difficulty -Nausea vomiting and diarrhea, improving could be viral versus reactive gastroenteritis. Results -Severe metabolic acidosis from lactic acidosis as well as acute renal failure, status post hemodialysis. Last hemodialysis was 05/29 -Suspected acute urinary tract infection -Hypernatremia secondary to above -Lactic acidosis multifactorial component of metformin induced also with ongoing nausea vomiting -type 2 diabetes mellitus -Hyperlipidemia -Hypertension, losartan currently on hold -Sleep apnea uses CPAP machine at home -depression Plan: This is a pleasant 57 years old female with a KI, gastroenteritis Continue with hemodialysis per nephrology team, Sanitary Aide on the case Discontinue ceftriaxone and monitor patient while off antibiotic Discontinue Mobic, telmisartan. Keep holding diabetes medication Actos, trajenta, metformin 1000 mg. Currently glucose controlled on diet only. Continue with ceftriaxone. Urine culture negative. Repeat urine culture is pending Continue with Villavicencio catheter, unless discontinued by legal researcher and check urine scan Labs and medication were reviewed.. Continue same treatment. Continue with symptomatic treatment. Resume home medication. Monitor lytes and vitals. DVT and GI prophylaxis. Further recommendations as per clinical course of the patient DVT prophylaxis: Subcutaneous heparin GI Prophylaxis: Pepcid PT/OT: Home
--- NOTE | 2022-05-31 13:57 | P.PN ---
Subjective Progress Note Date: 05/31/22 Follow-up for acute kidney injury on dialysis. Good urine output. No nausea vomiting diarrhea. Last dialysis on 05/29/2022. Objective - Vital Signs Vital signs: Vital Signs Temp 98 F 05/31/22 08:47 Pulse 63 05/31/22 12:00 Resp 17 05/31/22 12:00 BP 123/85 05/31/22 12:00 Pulse Ox 97 05/31/22 12:00 FiO2 Intake & Output 05/30/22 05/31/22 05/31/22 18:59 06:59 18:59 Intake Total 460 720 Output Total 850 1579 500 Balance -390 -1579 220 Weight 72.8 kg 72.3 kg Intake: Oral 460 720 Output: Urine 850 1500 500 Post Void Residual 79 Other: Voiding Method Indwelling Catheter Toilet # Voids 1 - Exam No acute distress S1-S2 heard Lungs clear No edema Right groin Pierce - Labs CBC & Chem 7: 05/30/22 07:48 05/31/22 08:53 Labs: Abnormal Lab Results - Last 24 Hours (Table) 05/30/22 05/30/22 05/31/22 Range/Units 16:38 20:34 07:05 Potassium (3.5-5.1) mmol/L Chloride (98-107) mmol/L Carbon Dioxide (22-30) mmol/L Creatinine (0.52-1.04) mg/dL Glucose (74-99) mg/dL POC Glucose (mg/dL) 159 H 126 H 150 H (70-110) mg/dL Calcium (8.4-10.2) mg/dL 05/31/22 05/31/22 Range/Units 08:53 11:35 Potassium 2.7 L* (3.5-5.1) mmol/L Chloride 96 L (98-107) mmol/L Carbon Dioxide 35 H (22-30) mmol/L Creatinine 2.06 H (0.52-1.04) mg/dL Glucose 139 H (74-99) mg/dL POC Glucose (mg/dL) 130 H (70-110) mg/dL Calcium 7.8 L (8.4-10.2) mg/dL Microbiology - Last 24 Hours (Table) 05/29/22 Unknown Urine Culture - Final Urine,Voided Assessment and Plan Assessment: #1 acute kidney injury multifactorial ATN currently on dialysis. -. Baseline creatinine 1.0 MG per DL. #2 anion gap metabolic acidosis secondary to lactic acidosis. #3 complicated UTI #4 diabetes #5 hyperkalemia resolved. Plan: #1 renal function improving, hold dialysis today. #2 if labs improving by tomorrow discontinue Pierce catheter. #3 replace KCl #4 avoid nephrotoxic agents and hypotensive episodes.
[2022-05-31 16:31] LABS: Glucose,Whole Blood 116 mg/dL (70-110)
[2022-05-31] MEDS: ATORVASTATIN 20 MG TAB PO SCH (19:38)
[2022-05-31 19:45] LABS: Glucose,Whole Blood 120 mg/dL (70-110)
[2022-06-01 06:43] LABS: Glucose,Whole Blood 81 mg/dL (70-110)
[2022-06-01] MEDS: HEPARIN SODIUM,PORCINE/PF 5,000 UNIT/0.5 ML SYRINGE SQ SCH ×2 (08:43→21:30)
[2022-06-01] MEDS: ARIPiprazole 2 MG TAB PO SCH (08:43)
[2022-06-01] MEDS: ASPIRIN 81 MG PO SCH (08:43)
[2022-06-01] MEDS: METOPROLOL TARTRATE 25 MG TAB PO SCH (08:43)
[2022-06-01] MEDS: DULoxetine HCL 60 MG CAPSULE.DR PO SCH (08:43)
[2022-06-01] MEDS: AZELASTINE 137MCG/SPRAY NASAL SCH ×2 (08:43→21:29)
[2022-06-01] MEDS: FAMOTIDINE 20 MG/2 ML VIAL IV SCH (08:43)
[2022-06-01 10:35] LABS: Potassium 3.5 mmol/L (3.5-5.1)
--- NOTE | 2022-06-01 10:42 | P.PN ---
Subjective Patient with [id number] female came in with compensative and tractable nausea vomiting has been going on for few days and patient is unable to urinate. Patient is found to have serum creatinine of 6. Patient BUN is only 22 patient probably has acute to be necrosis patient is also on multiple medications that can affect the kidney including ALETA inhibitor metformin and the and this aids. Nephrology was consulted and also the kidneys being obtain patient was on antibiotics for UTI recently. Patient to his creatinine was within normal li mits. 05/28/2022 Patient evaluated today resting in bed. Continues with ongoing nausea and had an episode of emesis today most likely from acute renal failure. Patient states she was recently treated outpatient for acute UTI a few months ago. Med review shows patient was treated for UTI with cipro for 10 days and also keflex was sent 2 days prior in February of this year. with Patient does have indwelling catheter in place and urine output in the last 24 hours -1.370 Liters. Nephrology is following and patient is recommend for renal replacement therapy and vascular services has been placed on consultation for temporary dialysis access. Labs today showing white count stable at 13.8, sodium 139, potassium 5.6, CO2 6, chloride 95. Creatinine is increased up to 6.71 today. Lactic acid continues to remain elevated at 15.1, which patient has nausea vomiting over the last few days can be a result of dehydration, also possible metformin inducted lactic acidosis. Procalcitonin level has been ordered and also blood culture. Urine culture is currently pending preliminary negative so far and patient is continued on empiric antibiotic coverage with IV ceftriaxone. Patient is also on bicarb gtt. Antiemetics with zofran, tigan. Patient remains afebrile, blood pressure 136/76 and 100% on room air. Subjective: Resuming the care of the patient today 05/29/2022 Patient looks comfortable today, her nausea vomiting and diarrhea she came in with. Today. Last time she vomited was yesterday, no bowel movement for the last few days. Patient still has low appetite. She denies any abdominal pain. She has a Villavicencio catheter and she is undergoing hemodialysis today. Blood pressure is 92/54 Patient continue on ceftriaxone, urine culture negative, repeat urine analysis Continue with bicarb drip her hotel dining room cashier Continue with symptomatic treatment Portcalcitonin is elevated 0.29 05/30/2022 Patient acute kidney injury is improving and clinically is doing well. She is almost as symptomatic however she is complaining of from poor appetite and once she has difficulty swallowing and feels a lump in her throat. She still has right femoral/inguinal dialysis catheter however hemodialysis was held today because her creatinine is improving down to 2.1. Other labs are stable, hemoglobin 10.5. Hemodynamically stable. She remains also on ceftriaxone and repeat urine culture is pending. First urine culture is negative. Patient informed that we stopped her diabetes medication including metformin Marbella Actos and trajenta and she agrees as her sugars controlled now and states she has a glucometer, instructions provided. Also informed to avoid NSAIDs which are significantly contraindicated and ho lding her telmisartan she verbalized understanding. Bicarb drip was stopped. Villavicencio catheter to be discontinued as per hotel dining room cashier recommendation 05/31/2022 Patient creatinine improving down to 2.0, glucose 2.1 yesterday, hemodialysis was held yesterday, we will follow up with nephrology team whether she will receive another hemodialysis today or not. She still has right femoral In a Place. Patient looks comfortable awake and alert, her main complaint today is feeling something stuck in her throat when she tries swallowing, months exam looks normal with no thrush or other abnormality. No swelling and breathing is fine. We will order for swallow evaluation Repeat urine culture is negative 2. Patient finished her therapy for UTI, this continued ceftriaxone for now. Patient has poor appetite but picking up and she finished 50% of her breakfast this morning. Villavicencio catheter in place and patient might benefit from follow-up as an outpatient Stress for the patient the importance of discontinuing NSAIDs. Also, the patient was still holding her diabetes medication and she agrees. Glucose controlled Villavicencio catheter was discontinued yesterday by hotel dining room cashier, bladder scan less than 51 I discussed with bed side nurse this morning 06/01/2022 Patient renal injury is improving as of yesterday and today are still pending. However she feels better, no more nausea vomiting and diarrhea, she has poor appetite and she is complaining of from some swallowing problem, Speech therapy consult still pending, patient still have right hemodialysis catheter in her right groin however she did not need one doses yesterday and it might be discontinued today or tomorrow per hotel dining room cashier. Other than that she denies any other symptoms she feels fine. She is aware of discontinuing NSAIDs, is receptor quirino upon discharge. Keep diabetes medication and hold Patient is being well after discontinued Villavicencio catheter. Possible discharge in 24-48 hours if she keeps improving Objective - Vital Signs Vital signs: Vital Signs Temp 98.1 F 06/01/22 08:49 Pulse 70 06/01/22 03:04 Resp 17 06/01/22 08:49 BP 123/84 06/01/22 08:49 Pulse Ox 100 06/01/22 08:49 FiO2 Intake & Output 05/31/22 06/01/22 06/01/22 18:59 06:59 18:59 Intake Total 1260 500 180 Output Total 500 700 Balance 760 -200 180 Weight 72.3 kg Intake: Oral 1260 500 180 Output: Urine 500 700 Other: Voiding Method Toilet - Exam GENERAL: The patient is alert and oriented x3, not in any acute distress. Well developed, well nourished. HEENT: Pupils are round and equally reacting to light. EOMI. No scleral icterus. No conjunctival pallor. Normocephalic, atraumatic. No pharyngeal erythema. No thyromegaly. CARDIOVASCULAR: S1 and S2 present. No murmurs, rubs, or gallops. PULMONARY: Chest is clear to auscultation, no wheezing or crackles. ABDOMEN: Soft, nontender, nondistended, normoactive bowel sounds. No palpable organomegaly. MUSCULOSKELETAL: No joint swelling or deformity. EXTREMITIES: No cyanosis, clubbing, or pedal edema. NEUROLOGICAL: Gross neurological examination did not reveal any focal deficits. SKIN: No rashes. no petechiae. - Labs CBC & Chem 7: 05/30/22 07:48 06/01/22 10:04 Labs: Abnormal Lab Results - Last 24 Hours (Table) 05/31/22 05/31/22 05/31/22 Range/Units 11:35 16:30 19:41 BUN (7-17) mg/dL Creatinine (0.52-1.04) mg/dL Glucose (74-99) mg/dL POC Glucose (mg/dL) 130 H 116 H 120 H (70-110) mg/dL Plasma Lactic Acid Maury (0.7-2.0) mmol/L Calcium (8.4-10.2) mg/dL 06/01/22 06/01/22 Range/Units 10:04 10:04 BUN 6 L (7-17) mg/dL Creatinine 1.53 H (0.52-1.04) mg/dL Glucose 111 H (74-99) mg/dL POC Glucose (mg/dL) (70-110) mg/dL Plasma Lactic Acid Maury 0.6 L (0.7-2.0) mmol/L Calcium 8.0 L (8.4-10.2) mg/dL Assessment and Plan Assessment: -Acute renal failure most likely acute tubular necrosis multifactorial patient was on angiotensin receptor quirino at home as well as NSAID daily. No evidence for obstruction. -Swallowing difficulty -Nausea vomiting and diarrhea, improving could be viral versus reactive gastroenteritis. Results -Severe metabolic acidosis from lactic acidosis as well as acute renal failure, status post hemodialysis. Last hemodialysis was 05/29 -Suspected acute urinary tract infection -Hypernatremia secondary to above -Lactic acidosis multifactorial component of metformin induced also with ongoing nausea vomiting -type 2 diabetes mellitus -Hyperlipidemia -Hypertension, losartan currently on hold -Sleep apnea uses CPAP machine at home -depression Plan: This is a pleasant 57 years old female with a KI, gastroenteritis Hold hemodialysis per nephrology team, Gradall Operator on the case check swallow evaluation Discontinue ceftriaxone and monitor patient while off antibiotic Discontinue Mobic, telmisartan. Keep holding diabetes medication Actos, trajenta, metformin 1000 mg. Currently glucose controlled on diet only. Continue with ceftriaxone. Urine culture negative. Repeat urine culture is pending Continue with Villavicencio catheter, unless discontinued by hotel dining room cashier and check urine scan Labs and medication were reviewed.. Continue same treatment. Continue with symptomatic treatment. Resume home medication. Monitor lytes and vitals. DVT and GI prophylaxis. Further recommendations as per clinical course of the patient DVT prophylaxis: Subcutaneous heparin GI Prophylaxis: Pepcid PT/OT: Home
[2022-06-01 11:38] LABS: Glucose,Whole Blood 99 mg/dL (70-110)
--- NOTE | 2022-06-01 13:45 | P.PN ---
Subjective Progress Note Date: 06/01/22 Follow-up for acute kidney injury on dialysis. Good urine output. No nausea vomiting diarrhea. Last dialysis on 05/29/2022. Objective - Vital Signs Vital signs: Vital Signs Temp 98.1 F 06/01/22 08:49 Pulse 70 06/01/22 03:04 Resp 17 06/01/22 08:49 BP 123/84 06/01/22 08:49 Pulse Ox 100 06/01/22 08:49 FiO2 Intake & Output 05/31/22 06/01/22 06/01/22 18:59 06:59 18:59 Intake Total 1260 500 180 Output Total 500 700 Balance 760 -200 180 Weight 72.3 kg Intake: Oral 1260 500 180 Output: Urine 500 700 Other: Voiding Method Toilet - Exam No acute distress S1-S2 heard Lungs clear No edema Right groin Pierce - Labs CBC & Chem 7: 05/30/22 07:48 06/01/22 10:04 Labs: Abnormal Lab Results - Last 24 Hours (Table) 05/31/22 05/31/22 06/01/22 Range/Units 16:30 19:41 10:04 BUN 6 L (7-17) mg/dL Creatinine 1.53 H (0.52-1.04) mg/dL Glucose 111 H (74-99) mg/dL POC Glucose (mg/dL) 116 H 120 H (70-110) mg/dL Plasma Lactic Acid Maury (0.7-2.0) mmol/L Calcium 8.0 L (8.4-10.2) mg/dL 06/01/22 Range/Units 10:04 BUN (7-17) mg/dL Creatinine (0.52-1.04) mg/dL Glucose (74-99) mg/dL POC Glucose (mg/dL) (70-110) mg/dL Plasma Lactic Acid Maury 0.6 L (0.7-2.0) mmol/L Calcium (8.4-10.2) mg/dL Assessment and Plan Assessment: #1 acute kidney injury multifactorial ATN currently on dialysis. -. Baseline creatinine 1.0 MG per DL. #2 anion gap metabolic acidosis secondary to lactic acidosis. #3 complicated UTI #4 diabetes #5 hyperkalemia resolved. Plan: #1 renal function improving, no further dialysis needed. #2 discontinue Pierce catheter #3 avoid nephrotoxic agents and hypotensive episodes. Stable from nephrology for discharge to be followed up in the office in 2-3 weeks
[2022-06-01 16:36] LABS: Glucose,Whole Blood 117 mg/dL (70-110)
[2022-06-01 20:54] LABS: Glucose,Whole Blood 90 mg/dL (70-110)
[2022-06-01] MEDS: ATORVASTATIN 20 MG TAB PO SCH (21:29)
[2022-06-02 06:26] LABS: Glucose,Whole Blood 88 mg/dL (70-110)
[2022-06-02] MEDS ORDERED: FAMOTIDINE 20 MG TAB PO SCH (09:00)
--- NOTE | 2022-06-02 09:11 | OP ---
OPERATIVE REPORT PROCEDURE PERFORMED: Removal of dialysis catheter, right femoral approach. DESCRIPTION OF PROCEDURE: The patient was seen. Right groin was prepped and draped in the usual sterile manner. Stitches were removed and catheter was removed. Pressure dressing applied. The patient tolerated the procedure well. CALEB / JAMISON: [id number] /
[2022-06-02] MEDS: ARIPiprazole 2 MG TAB PO SCH (09:54)
[2022-06-02] MEDS: METOPROLOL TARTRATE 25 MG TAB PO SCH (09:54)
[2022-06-02] MEDS: DULoxetine HCL 60 MG CAPSULE.DR PO SCH (09:54)
[2022-06-02] MEDS: AZELASTINE 137MCG/SPRAY NASAL SCH (09:55)
[2022-06-02] MEDS: ASPIRIN 81 MG PO SCH (09:55)
[2022-06-02] MEDS: HEPARIN SODIUM,PORCINE/PF 5,000 UNIT/0.5 ML SYRINGE SQ SCH (09:55)
[2022-06-02 10:41] VITALS: RESP 18; TEMP 98.3
[2022-06-02 11:25] LABS: Glucose,Whole Blood 137 mg/dL (70-110)
--- NOTE | 2022-06-02 11:52 | P.PN ---
Subjective Patient is seen for follow-up for acute kidney injury and severe lactic acidosis associated with use of metformin. Patient is status post hemodialysis. Last hemodialysis treatment was on 05/29/2022. Patient currently has good urine output. Dialysis catheter has been removed. Serum creatinine 1.5 on 06/01/2022 Objective - Vital Signs Vital signs: Vital Signs Temp 98.3 F 06/02/22 08:00 Pulse 92 06/02/22 08:00 Resp 18 06/02/22 08:00 BP 126/81 06/02/22 08:00 Pulse Ox 97 06/02/22 08:00 FiO2 Intake & Output 06/01/22 06/02/22 06/02/22 18:59 06:59 18:59 Intake Total 540 360 Output Total 400 400 600 Balance 140 -400 -240 Weight 73.2 kg Intake: Oral 540 360 Output: Urine 400 400 600 Stool 0 Urine/Stool Mix 0 Other: Voiding Method Toilet # Voids 0 # Bowel Movements 0 - Exam Awake, comfortable, not in any acute distress Examination of the heart S1 and S2 Examination lungs decreased breath sounds at the bases Abdomen is soft nontender Examination lower extremity shows no significant edema COPYWRITER exam is grossly intact Right femoral catheter - Labs CBC & Chem 7: 05/30/22 07:48 06/01/22 10:04 Labs: Abnormal Lab Results - Last 24 Hours (Table) 06/01/22 06/02/22 Range/Units 16:35 11:23 POC Glucose (mg/dL) 117 H 137 H (70-110) mg/dL Assessment and Plan Assessment: 1. Acute kidney injury ATN currently nonoliguric. UA shows 1+ protein and 1+ blood. Urine eosinophils negative. Ultrasound shows no evidence of obstruction. Previous creatinine 1.0 on 03/20/2022. Etiology is most likely severe hypovolemia and hypotension. Started on hemodialysis mostly for refractory acidosis. Patient did have significant nausea as well which could've been uremic symptom. Renal function has improved. Patient is off of hemodialysis and dialysis catheter has been removed. Last treatment was on 05/29/2022 2. Severe metabolic acidosis associated with acute kidney injury and lactic acidosis. Improved. 3. Lactic acidosis secondary to metformin 4. Nausea most likely related to uremia currently resolved 5. Type 2 diabetes maintained on metformin and paula Egan as outpatient 6. Hyperkalemia associated with acute kidney injury and severe metabolic acidosis Plan: Patient is advised to continue to avoid the use of NSAIDs. I will continue to hold off on metformin for now. Follow-up in the office in about 1-2 weeks post discharge
[2022-06-02 13:33] VITALS: BP 160/80; PULSE 76
[2022-06-02 16:28] LABS: Glucose,Whole Blood 110 mg/dL (70-110)
--- NOTE | 2022-06-02 21:34 | P.DS ---
Providers Date of admission: 05/27/22 11:19 Attending physician: Hiram Kasper Consults: 05/27/22 11:19 Consult Physician Urgent Consulting Provider: Ludivina Perez Consult Reason/Comments: sunny, acute n/v Do you want consulting provider notified?: Yes 05/28/22 10:19 Consult Physician Urgent Consulting Provider: Oskar Raines Consult Reason/Comments: Temporary Dialysis cath Do you want consulting provider notified?: Yes Primary care physician: Heather Velez [facility] Course: Diagnoses -Acute renal failure most likely acute tubular necrosis multifactorial patient was on angiotensin receptor quirino at home as well as NSAID daily. No evidence for obstruction. -Swallowing difficulty -Nausea vomiting and diarrhea, improving could be viral versus reactive gastroenteritis. Results -Severe metabolic acidosis from lactic acidosis as well as acute renal failure, status post hemodialysis. Last hemodialysis was 05/29 -Suspected acute urinary tract infection, finish treatment and patient is currently asymptomatic. She has 2 urine cultures negative -Hypernatremia secondary to above -Lactic acidosis multifactorial component of metformin induced also with ongoing nausea vomiting -type 2 diabetes mellitus -Hyperlipidemia -Hypertension, losartan currently on hold -Sleep apnea uses CPAP machine at home -depression Hospital course: Patient is a pleasant 57-year-old female came in with compensative and tractable nausea vomiting has been going on for few days and patient is unable to urinate. Patient is found to have serum creatinine of 6. Lactic acid was significantly elevated up to 15. On admission her Mobic was discontinued as well as telmisartan and IV fluid was started for her with sodium bicarb, she tolerated that well and her creatinine trending down. Also she needed femoral dialysis catheter and she received 2 bouts of hemodialysis. Eventually her creatinine improved down to 1.5 as of yesterday. Patient became asymptomatic. Her nausea vomiting diarrhea or stopped and her blood pressure improved, she tolerated that well. She passed a swallow evaluation today. Dialysis catheter was removed from her femoral vein. She tolerated procedure well yesterday. Today she remains asymptomatic with no chest pain or dyspnea. No GI or urinary symptoms. No fever. Patient is eager to go home. 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 Patient was instructed to follow up with PCP Dr. Dixon within one week and patient agrees Patient was instructed to follow up with Dr. Perez 1-2 weeks and she agrees Patient was instructed to hold her diabetes medication, all of them including metformin and Actos and tragenta , she said she has a glucometer and she is going to check her sugar 4 times a day as instructed. Physical exam Gen: patient is a AAOx3, no distress CVS: S1-S2, RRR, no murmur Lungs: B/L CTA, no wheezing Abdomen: soft, no distention, no tenderness, positive bowel sounds Extremity: no leg edema or induration Time spent more than 35 minutes Patient Condition at Discharge: Serious Plan - Discharge Summary Discharge Rx Participant: Yes New Discharge Prescriptions: New Acetaminophen Tab [Tylenol] 650 mg PO Q6HR PRN tab PRN Reason: Fever And/ Or Pain Continue Simvastatin [Zocor] 40 mg PO HS Dicyclomine [Bentyl] 20 mg PO TID Aspirin EC [Ecotrin Low Dose] 81 mg PO DAILY #30 tablet. Thiamine [Vitamin B-1] 100 mg PO HS Ergocalciferol [Vitamin D2 (1250 Mcg = 95132 Iu)] 1,250 mcg PO Q14D Omeprazole 40 mg PO BID Folic Acid 0.8 mg PO BID Ferrous Sulfate [Iron (65 MG Elemental)] 325 mg PO DAILY DULoxetine HCL [Cymbalta] 60 mg PO DAILY ARIPiprazole [Abilify] 4 mg PO DAILY Montelukast [Singulair] 10 mg PO HS Metoprolol Tartrate [Lopressor] 25 mg PO DAILY Fluticasone Nasal [place] [Flonase Nasal [place]] 2 spray EA NOSTRIL BID Cyclobenzaprine [Flexeril] 5 mg PO TID Azelastine HCl [Astepro] 1 spray NASAL BID Discontinued metFORMIN HCL [Glucophage] 1,000 mg PO BID Linagliptin [Tradjenta] 5 mg PO HS Telmisartan [Micardis] 40 mg PO DAILY Zolpidem [Ambien] 10 mg PO HS Meloxicam [Mobic] 15 mg PO DAILY Pioglitazone [Actos] 30 mg PO DAILY No Action Refresh Optical Gel 1 applic OPHTHALMIC HS Fexofenadine HCl 180 mg PO HS Propylene Glycol [Systane Complete] 1 drop BOTH EYES DAILY Naltrexone 3mg 3 mg PO HS Discharge Medication List Dicyclomine [Bentyl] 20 mg PO TID 02/14/15 [History] Simvastatin [Zocor] 40 mg PO HS 02/14/15 [History] Aspirin EC [Ecotrin Low Dose] 81 mg PO DAILY #30 tablet. 10/06/16 [Rx] ARIPiprazole [Abilify] 4 mg PO DAILY 05/27/22 [History] Azelastine HCl [Astepro] 1 spray NASAL BID 05/27/22 [History] Cyclobenzaprine [Flexeril] 5 mg PO TID 05/27/22 [History] DULoxetine HCL [Cymbalta] 60 mg PO DAILY 05/27/22 [History] Ergocalciferol [Vitamin D2 (1250 Mcg = 13767 Iu)] 1,250 mcg PO Q14D 05/27/22 [History] Ferrous Sulfate [Iron (65 MG Elemental)] 325 mg PO DAILY 05/27/22 [History] Fexofenadine HCl 180 mg PO HS 05/27/22 [History] Fluticasone Nasal [place] [Flonase Nasal [place]] 2 spray EA NOSTRIL BID 05/27/22 [History] Folic Acid 0.8 mg PO BID 05/27/22 [History] Metoprolol Tartrate [Lopressor] 25 mg PO DAILY 05/27/22 [History] Montelukast [Singulair] 10 mg PO HS 05/27/22 [History] Naltrexone 3mg 3 mg PO HS 05/27/22 [History] Omeprazole 40 mg PO BID 05/27/22 [History] Propylene Glycol [Systane Complete] 1 drop BOTH EYES DAILY 05/27/22 [History] Refresh Optical Gel 1 applic OPHTHALMIC HS 05/27/22 [History] Thiamine [Vitamin B-1] 100 mg PO HS 05/27/22 [History] Acetaminophen Tab [Tylenol] 650 mg PO Q6HR PRN tab 06/02/22 [Rx] Follow up Appointment(s)/Referral(s): Ludivina Perez MD [STAFF PHYSICIAN] - 1 Week (Please call to make a follow-up appointment.) Heather Velez MD [Primary Care Provider] - 1-2 days (Please call to make a follow-up appointment.) Patient Instructions/Handouts: Acute Kidney Injury (DC) Activity/Diet/Wound Care/Special Instructions: Heart healthy diet , 1600 kcal per day low carbohydrate diet. Activity is restricted till you see your doctor We recommend to check your glucose 4 times a day, before each meal and at bedtime. Keep the Results in a log book and bring it to your doctor on your appointment date. If your glucose less than 70 or more than 400 then call 911 and come to emergency room Discharge Disposition: HOME SELF-CARE
== END 2022-06-02 17:36 | disposition home or self-care (01) | DRG 683 ==
LOC: EC 08:52 → 3SCARD 11:19
PROVIDERS: ADMIT Hospitalist; ATTEND Hospitalist
PROC: 5A1D70Z Performance of Urinary Filtration, Intermittent, Less than 6 Hours Per Day (ICD-10-PCS; 2022-05-28 15:00)
PROC: 06HY33Z Insertion of Infusion Device into Lower Vein, Percutaneous Approach (ICD-10-PCS; 2022-05-28 15:00)
PROC: 05HC33Z Insertion of Infusion Device into Left Basilic Vein, Percutaneous Approach (ICD-10-PCS; principal; 2022-05-29 12:35)
PROC: 06PYX3Z Removal of Infusion Device from Lower Vein, External Approach (ICD-10-PCS; 2022-06-02)
DX: N17.0 Acute kidney failure with tubular necrosis (principal); E87.1 Hypo-osmolality and hyponatremia; E87.2 Acidosis; N39.0 Urinary tract infection, site not specified; K58.1 Irritable bowel syndrome with constipation; J45.909 Unspecified asthma, uncomplicated; E11.22 Type 2 diabetes mellitus with diabetic chronic kidney disease; E11.649 Type 2 diabetes mellitus with hypoglycemia without coma; E78.5 Hyperlipidemia, unspecified; E86.0 Dehydration; E86.1 Hypovolemia; I95.9 Hypotension, unspecified; E87.5 Hyperkalemia; F32.A Depression, unspecified; F41.9 Anxiety disorder, unspecified; G47.30 Sleep apnea, unspecified; I12.9 Hypertensive chronic kidney disease with stage 1 through stage 4 chronic kidney disease, or unspecified chronic kidney disease; M79.7 Fibromyalgia; N18.9 Chronic kidney disease, unspecified; R13.10 Dysphagia, unspecified; T38.3X5A Adverse effect of insulin and oral hypoglycemic [antidiabetic] drugs, initial encounter; Z79.1 Long term (current) use of non-steroidal anti-inflammatories (NSAID); Z79.82 Long term (current) use of aspirin; Z79.84 Long term (current) use of oral hypoglycemic drugs; Z79.899 Other long term (current) drug therapy; Z82.49 Family history of ischemic heart disease and other diseases of the circulatory system
CPT/HCPCS: 36410; 36415; 36556; 51798; 74018; 76770; 76937; 77001; 80048; 80053; 81001; 82550; 83605; 83690; 83735; 84132; 84145; 85025; 85610; 86706; 87086; 87205; 87340; 87502; 87651; 90935; 96361; 96374; 96375; 96376; 99285

== ENCOUNTER → 2023-04-28 | Outpatient (CLI) | payer BC ==
--- NOTE | 2023-04-29 14:31 | MM ---
Reason for Exam: Screening (asymptomatic). Last screening mammogram was performed 12 month(s) ago. Patient History: Menarche at age 13. First Full-Term at age 26. Currently using Hormonal Contraceptives, beginning at age 45 for 10 years. 08/13/2015, Benign Core Biopsy on the right side. Maternal cousin had breast cancer, age 30. Maternal aunt had breast cancer, age 60. Maternal aunt had breast cancer, age 40. Risk Values: Leonarda 5 year model risk: 1.4%. NCI Lifetime model risk: 9.3%. Prior Study Comparison: 11/28/2019 Bilateral Screening Mammogram, [facility]. 12/27/2020 Bilateral Screening Mammogram, [facility]. 04/24/2022 Bilateral MG screening mammo w CAD, [facility]. Tissue Density: The breast tissue is heterogeneously dense. This may lower the sensitivity of mammography. Findings: Analyzed By CAD. Pattern appears stable. There are focal asymmetries in the upper outer bilateral mid to posterior breasts. Core marker is within the right breast. Findings appear stable comparison studies. No suspicious groups of microcalcifications, spiculated or lobular masses, architectural distortion or other secondary signs of malignancy are mammographically apparent. Overall Assessment: Benign, BI-RAD 2 Management: Screening Mammogram of both breasts in 1 year. A negative mammogram report should not preclude additional follow up of suspicious palpable abnormalities. Patient should continue monthly self breast exam. A clinical breast exam by your physician is recommended on an annual basis and results should be correlated with mammographic findings. Electronically signed and approved by: Norberto Judd D.O. Radiologis
== END | disposition home or self-care (01) ==
LOC: RADMAMWWP 16:03
PROVIDERS: ATTEND Family Medicine
DX: Z12.31 Encounter for screening mammogram for malignant neoplasm of breast (principal); Z80.3 Family history of malignant neoplasm of breast
CPT/HCPCS: 77067

== ENCOUNTER → 2023-06-17 | Outpatient (CLI) | payer BC ==
--- NOTE | 2023-06-17 10:51 | XR ---
EXAMINATION TYPE: XR lumbosacral spine min 4V DATE OF EXAM: 06/17/2023 10:46 AM INDICATION: Patient age:Female; 58 years old; Reason for study: M54.50 LOW BACK PAIN; PHH. COMPARISON: Lumbar spine radiograph 10/07/2021, 09/17/2021, MRI lumbar spine 01/27/2022 TECHNIQUE: Frontal, lateral , bilateral oblique and coned in L5-S1 lateral views of the spine. FINDINGS: There are 5 lumbar type vertebral bodies identified. No evidence of any acute osseous patho logy. No evidence of loss of vertebral body height is seen. Similar grade 1 anterolisthesis of L4 on L5. Multilevel disc space narrowing with endplate sclerosis and anterior osteophytosis. Multilevel f acet arthropathy of the lower lumbar spine. IMPRESSION: 1. No acute process. 2. Mild multilevel degenerative disc disease. 3. Stable grade 1 anterolisthesis of L4 on L5.
== END | disposition home or self-care (01) ==
LOC: RADXRMAIN 10:27
PROVIDERS: ATTEND Family Medicine
DX: M51.36 Other intervertebral disc degeneration, lumbar region (principal); M43.16 Spondylolisthesis, lumbar region
CPT/HCPCS: 72110

== ENCOUNTER 2023-08-11 06:57 | Day surgery (SDC) | payer BC ==
[2023-08-06 16:57] VITALS: BMI 33.6
[~2023-08-11 06:57] MED LIST: LACTATED RINGERS 1,000 ML IV SCH; LIDOCAINE 1% (10MG/ML) FOR IV START INTRADERMA PRN
[2023-08-11 07:33] LABS: Glucose,Whole Blood 122 mg/dL (70-110)
[2023-08-11 07:37] VITALS: TEMP 98
[2023-08-11] MEDS ORDERED: PROPOFOL 10 MG/ML 20 ML VIAL IV ONE (08:00)
[2023-08-11] MEDS ORDERED: LIDOCAINE 1% INJ 10MG/ML (20 ML MDV) ONE (08:00)
[2023-08-11] MEDS ORDERED: GLYCOPYRROLATE 0.2 MG/ML 2 ML VIAL ONE (08:00)
--- NOTE | 2023-08-11 08:24 | P.PCN ---
Date of Procedure: 08/11/23 Procedure(s) Performed: BRIEF HISTORY: Patient is a 58-year-old pleasant white female scheduled for an elective colonoscopy as a part of screening for colon cancer. PROCEDURE PERFORMED: Colonoscopy. PREOPERATIVE DIAGNOSIS: Screening for colon cancer. IV sedation per Anesthesia. PROCEDURE: After informed consent was obtained, the patient, was brought into the endoscopy unit. IV sedation was administered by Anesthesia under continuous monitoring. Digital rectal examination was normal. Initially the Olympus CF-160 flexible video colonoscope was then inserted in the rectum, gradually advanced into the cecum without any difficulty. Careful examination was performed as the scope was gradually being withdrawn. Ileocecal valve and the appendiceal orifice were visualized and appeared normal. Prep was excellent. Mucosa of the cecum, ascending colon, transverse colon, descending colon, sigmoid colon, and rectum appeared normal. Retroflexion was performed in the rectum and no lesions were seen. Scattered diffuse diverticula. The patient tolerated the procedure well. IMPRESSION: Normal-appearing colon from rectum to cecum of colorectal neoplasia . Scattered diffuse diverticulosis. RECOMMENDATIONS: Findings of this examination were discussed with the patient as well as a family. She was advised to have a repeat screening colonoscopy in 10 years..
[2023-08-11 08:58] VITALS: BP 124/78; PULSE 67; RESP 16
== END 2023-08-11 09:02 | disposition home or self-care (01) ==
LOC: ORWHC2ENDO 06:57
PROVIDERS: ATTEND Internal Medicine Gastroenterology
DX: Z12.11 Encounter for screening for malignant neoplasm of colon (principal); K57.30 Diverticulosis of large intestine without perforation or abscess without bleeding; I10 Essential (primary) hypertension; E11.9 Type 2 diabetes mellitus without complications; E78.5 Hyperlipidemia, unspecified; J45.909 Unspecified asthma, uncomplicated; M19.90 Unspecified osteoarthritis, unspecified site; M79.7 Fibromyalgia; G47.33 Obstructive sleep apnea (adult) (pediatric); K21.9 Gastro-esophageal reflux disease without esophagitis; K58.9 Irritable bowel syndrome, unspecified; Z79.51 Long term (current) use of inhaled steroids; Z79.82 Long term (current) use of aspirin; Z79.899 Other long term (current) drug therapy
CPT/HCPCS: 45378; J2001; J2704

== ENCOUNTER → 2024-06-14 | Outpatient (CLI) | payer BC ==
--- NOTE | 2024-06-22 07:22 | MM ---
Reason for Exam: Screening (asymptomatic). Last mammogram was performed 1 year(s) and 1 month(s) ago. Patient History: Menarche at age 13. First Full-Term at age 26. Currently using Hormonal Contraceptives, beginning at age 45 for 10 years. 08/13/2015, Benign Core Biopsy on the right side. Maternal cousin had breast cancer, age 30. Maternal aunt had breast cancer, age 60. Maternal aunt had breast cancer, age 40. Risk Values: Leonarda 5 year model risk: 1.5%. NCI Lifetime model risk: 9.1%. Prior Study Comparison: 12/27/2020 Bilateral Screening Mammogram, [facility]. 04/24/2022 Bilateral MG screening mammo w CAD, [facility]. 04/28/2023 Bilateral MG screening mammo w CAD, [facility]. Tissue Density: There are scattered areas of fibroglandular density. Findings: Analyzed By CAD. Right breast biopsy clip. Right breast: There is no suspicious group of microcalcifications or new suspicious mass. Left breast: There is no suspicious group of microcalcifications or new suspicious mass. Overall Assessment: Negative, BI-RAD 1 Management: Screening Mammogram of both breasts in [address] [facility] will attempt to contact patient to return for supplemental views and ultrasound if indicated. Patient should continue monthly self-breast exams. A clinical breast exam by your physician is recommended on an annual basis. This exam should not preclude additional follow-up of suspicious palpable abnormalities. Note on Leonarda scores and lifetime risk: 1. A Leonarda score greater than 3% is considered moderate risk. If this is the case, consider specialist referral to assess eligibility for a risk reducing agent. 2. If overall lifetime risk for the development of breast cancer is 20% or higher, the patient may qualify for future screening with alternating mammogram and breast MRI. Electronically signed and approved by: Sidney De Jesus DO
== END | disposition home or self-care (01) ==
LOC: RADMAMWWP 13:40
PROVIDERS: ATTEND Family Medicine
DX: Z12.31 Encounter for screening mammogram for malignant neoplasm of breast
CPT/HCPCS: 77067

== ENCOUNTER → 2024-06-14 | Outpatient (CLI) | payer BC ==
--- NOTE | 2024-06-14 14:19 | US ---
EXAMINATION TYPE: US kidneys/renal and bladder DATE OF EXAM: 06/14/2024 COMPARISON: US 05/27/2022 CLINICAL INDICATION: Female, 59 years old with history of [id number] CKD; CKD stage 3A EXAM MEASUREMENTS: Right Kidney: 9.1 x 4.8 x 4.4 cm Left Kidney: 10.9 x 4.7 x 5.1 cm Post Void Residual Volume: 11.5 mL Right Kidney: Anechoic area seen lower pole: 1.9 x 1.8 x 1.8 cm. Left Kidney: No hydronephrosis or masses seen Bladder: Appears anechoic. Bilateral Jets seen: Yes Normal Post Void Residual: Yes No hydronephrosis or nephrolithiasis. No solid renal masses. Right lower pole renal 1.9 cm simple cys t. Cortical medullary differentiation is maintained bilaterally. No significant cortical thinning. Ur inary bladder is anechoic without filling defect. Bilateral ureteral jets identified. Normal postvoid residual. IMPRESSION: No hydronephrosis or nephrolithiasis.
== END | disposition home or self-care (01) ==
LOC: RADUSWWP 13:38
PROVIDERS: ATTEND Internal Medicine Nephrology
DX: N18.31 Chronic kidney disease, stage 3a (principal)
CPT/HCPCS: 76770